=== PATIENT | female | born 1955 | race Caucasian/White ===

== ENCOUNTER → 2020-08-04 | Outpatient (CLI) | payer OTHER ==
[~2020-08-04] MED LIST: ACET500 PO; CARI350 PO; CLOR7.5 PO; IBUP600 PO; LEVSOD112 PO; RXTRAM50 PO; TRAM50 PO
[2020-08-04 14:35] LABS: BASOPHILS ABSOLUTE AUTO 0.06 K/mm3 (0.00-0.23); BASOPHILS PERCENT AUTO 1 % (0-2); EOSINOPHILS ABSOLUTE AUTO 0.14 K/mm3 (0.00-0.68); EOSINOPHILS PERCENT AUTO 3 % (0-6); Hematocrit 37.8 % (33.0-51.0); Hemoglobin 11.2 g/dL (11.5-16.0); IMMATURE GRAN ABSOLUTE AUTO 0.26 K/mm3 (0.00-0.10); IMMATURE GRAN PERCENT AUTO 5 % (0-1); LYMPHOCYTES ABSOLUTE AUTO 1.51 K/mm3 (0.84-5.20); LYMPHOCYTES PERCENT AUTO 29 % (21-46); MONOCYTES PERCENT AUTO 8 % (4-13); Mean Corpuscular HGB 24.1 pg (26.0-34.0); Mean Corpuscular HGB Conc 29.6 g/dL (31.5-36.5); Mean Corpuscular Volume 81 fL (80-100); Mean Platelet Volume 8.3 fL (9.1-12.4); NEUTROPHILS ABSOLUTE AUTO 2.78 K/mm3 (1.96-9.15); NEUTROPHILS PERCENT AUTO 54 % (41-73); Platelet Count 396 K/mm3 (150-400); RDW Coefficient Variation 14.1 % (11.7-14.2); RDW Standard Deviation 41.3 fL (35.1-46.3); Red Blood Cell Count 4.65 M/mm3 (3.80-5.20); White Blood Cell Count 5.15 K/mm3 (4.00-11.30)
[2020-08-04 15:52] LABS: Alanine Aminotransfer (ALT/SGP 23 U/L (12-78); Albumin, Blood 3.8 g/dL (3.4-5.0); Alk Phos 108 U/L (50-136); Anion Gap 5 mmol/L (6-16); Aspartate Aminotrans (AST/SGOT 20 U/L (12-37); Bilirubin, Total 0.2 mg/dL (0.1-1.0); Blood Urea Nitrogen 13 mg/dL (8-24); Bun/Creatinine Ratio 14.7 (12.0-20.0); CHOL/HDL RATIO 4.9; CO2, Blood 26 mmol/L (21-32); Calcium, Blood 9.4 mg/dL (8.5-10.1); Chloride, Blood 100 mmol/L (98-108); Cholesterol 281 mg/dL (50-200); Creatinine, Blood 0.88 mg/dL (0.40-1.00); Globulin, Blood 3.8 g/dL (2.2-4.0); Glomerular Filtration Rate >60 (60-); Glucose, Blood 97 mg/dL (70-99); HDL Cholesterol 57 mg/dL (>39); LDL/HDL RATIO 3.5; Low Density Lipoprotein Chol 200 mg/dL (0-110); Phosphorus, Blood 3.1 mg/dL (2.5-4.9); Potassium, Blood 4.4 mmol/L (3.5-5.5); Sodium, Blood 131 mmol/L (136-145); Thyroxine (T4) 10.5 ug/dL (4.8-13.9); Total Protein, Blood 7.6 g/dL (6.4-8.2); Triglycerides 121 mg/dL (30-160); Very Low Density Lipoprot Chol 24 mg/dL (6-32)
== END ==
LOC: LAB SHORT 10:50 → LAB 10:50
PROVIDERS: Internal Medicine Hematology & Oncology
DX: E03.9 Hypothyroidism, unspecified (principal); I10 Essential (primary) hypertension
CPT/HCPCS: 80053; 80061; 84100; 84436; 84443; 85025

== ENCOUNTER → 2020-10-09 | Outpatient (CLI) | payer OTHER ==
[~2020-10-09] MED LIST changes: +Athenol325 MG PO; +DOCU100 PO; +KLONOPIN0.5 M2 PO; +LOSARTAN POTASS25 M2 PO; +SENNA LAXATIVE8.6 MG PO; +SOMA350 M4 PO
[2020-10-09 16:56] LABS: Alanine Aminotransfer (ALT/SGP 26 U/L (12-78); Albumin, Blood 4.2 g/dL (3.4-5.0); Albumin/Globulin Ratio 1.2 (0.8-1.8); Alk Phos 114 U/L (50-136); Anion Gap 6 mmol/L (6-16); Aspartate Aminotrans (AST/SGOT 20 U/L (12-37); Bilirubin, Total 0.3 mg/dL (0.1-1.0); Blood Urea Nitrogen 13 mg/dL (8-24); Bun/Creatinine Ratio 16.8 (12.0-20.0); CHOL/HDL RATIO 4.7; CO2, Blood 25 mmol/L (21-32); Calcium, Blood 9.9 mg/dL (8.5-10.1); Chloride, Blood 96 mmol/L (98-108); Cholesterol 318 mg/dL (50-200); Creatinine, Blood 0.77 mg/dL (0.40-1.00); Ferritin, Serum 10 ng/mL (8-252); Globulin, Blood 3.5 g/dL (2.2-4.0); Glomerular Filtration Rate >60 (60-); Glucose, Blood 99 mg/dL (70-99); HDL Cholesterol 68 mg/dL (>39); Iron Serum 35 ug/dL (50-170); LDL/HDL RATIO 3.3; Low Density Lipoprotein Chol 226 mg/dL (0-110); Percent Saturation 6.2 % (15.0-50.0); Phosphorus, Blood 3.4 mg/dL (2.5-4.9); Potassium, Blood 4.5 mmol/L (3.5-5.5); Sodium, Blood 127 mmol/L (136-145); Thyroxine (T4) 10.2 ug/dL (4.8-13.9); Total Iron Binding Capacity 561 ug/dL (250-450); Total Protein, Blood 7.7 g/dL (6.4-8.2); Triglycerides 120 mg/dL (30-160); Very Low Density Lipoprot Chol 24 mg/dL (6-32)
== END | disposition home or self-care (01) ==
LOC: PLD 10:00 → LAB SHORT 10:00
PROVIDERS: Internal Medicine Hematology & Oncology
DX: E03.9 Hypothyroidism, unspecified (principal); I10 Essential (primary) hypertension; D50.0 Iron deficiency anemia secondary to blood loss (chronic); E78.5 Hyperlipidemia, unspecified
CPT/HCPCS: 80053; 80061; 82728; 83540; 83550; 84100; 84436; 84443

== ENCOUNTER 2020-11-24 14:19 | Emergency (ER) | payer OTHER ==
[~2020-11-24] VITALS: Ht 162.6 cm; Wt 79.4 kg
[~2020-11-24 14:19] MED LIST changes: -Athenol325 MG PO; -DOCU100 PO; -KLONOPIN0.5 M2 PO; -LOSARTAN POTASS25 M2 PO; -SENNA LAXATIVE8.6 MG PO; -SOMA350 M4 PO
[2020-11-24 15:12] LABS: Source, Urine Voided
[2020-11-24 15:17] LABS: Bilirubin, Urine Neg (Neg); Blood, Urine Neg (Neg); Glucose Qualitative, Urine Neg (Neg); Ketones, Urine 2+ (Neg); Leukocyte Esterase, Urine Neg (Neg); Nitrite, Urine Neg (Neg); Protein, Urine Neg (Neg); Specific Gravity, Urine 1.015 (1.003-1.022); Urobilinogen, Urine NORM (Normal)
[2020-11-24 15:29] LABS: Alanine Aminotransfer (ALT/SGP 27 U/L (12-78); Albumin, Blood 3.9 g/dL (3.4-5.0); Alk Phos 109 U/L (50-136); Anion Gap 8 mmol/L (6-16); Aspartate Aminotrans (AST/SGOT 18 U/L (12-37); BASOPHILS ABSOLUTE AUTO 0.04 K/mm3 (0.00-0.23); BASOPHILS PERCENT AUTO 1 % (0-2); Bilirubin, Total 0.5 mg/dL (0.1-1.0); Blood Urea Nitrogen 7 mg/dL (8-24); Bun/Creatinine Ratio 9.3 (12.0-20.0); CO2, Blood 25 mmol/L (21-32); Calcium, Blood 10.2 mg/dL (8.5-10.1); Chloride, Blood 96 mmol/L (98-108); Creatinine, Blood 0.76 mg/dL (0.40-1.00); EOSINOPHILS ABSOLUTE AUTO 0.04 K/mm3 (0.00-0.68); EOSINOPHILS PERCENT AUTO 1 % (0-6); Globulin, Blood 3.9 g/dL (2.2-4.0); Glomerular Filtration Rate >60 (60-); Glucose, Blood 98 mg/dL (70-99); Hematocrit 36.7 % (33.0-51.0); Hemoglobin 11.4 g/dL (11.5-16.0); IMMATURE GRAN ABSOLUTE AUTO 0.01 K/mm3 (0.00-0.10); IMMATURE GRAN PERCENT AUTO 0 % (0-1); LYMPHOCYTES ABSOLUTE AUTO 1.24 K/mm3 (0.84-5.20); LYMPHOCYTES PERCENT AUTO 25 % (21-46); MONOCYTES ABSOLUTE AUTO 0.45 K/mm3 (0.16-1.47); MONOCYTES PERCENT AUTO 9 % (4-13); Mean Corpuscular HGB 24.8 pg (26.0-34.0); Mean Corpuscular HGB Conc 31.1 g/dL (31.5-36.5); Mean Corpuscular Volume 80 fL (80-100); Mean Platelet Volume 8.1 fL (9.1-12.4); NEUTROPHILS ABSOLUTE AUTO 3.28 K/mm3 (1.96-9.15); NEUTROPHILS PERCENT AUTO 65 % (41-73); Platelet Count 367 K/mm3 (150-400); Potassium, Blood 3.9 mmol/L (3.5-5.5); RDW Coefficient Variation 13.5 % (11.7-14.2); RDW Standard Deviation 38.3 fL (35.1-46.3); Red Blood Cell Count 4.59 M/mm3 (3.80-5.20); Sodium, Blood 129 mmol/L (136-145); Total Protein, Blood 7.8 g/dL (6.4-8.2); White Blood Cell Count 5.06 K/mm3 (4.00-11.30)
[2020-11-24 15:42] LABS: Appearance, Urine Clear (Clear); Color, Urine Pale Yellow (P-Yellow)
== END 2020-11-24 17:17 | disposition home or self-care (01) ==
LOC: ER 14:19
PROVIDERS: Emergency Medicine
DX: R30.0 Dysuria (principal); R10.30 Lower abdominal pain, unspecified; E03.9 Hypothyroidism, unspecified; Z79.899 Other long term (current) drug therapy; Z88.2 Allergy status to sulfonamides; Z88.1 Allergy status to other antibiotic agents
CPT/HCPCS: 36415; 51798; 80053; 81003; 85025; 93005; 93010; 99284-25; P9612

== ENCOUNTER → 2020-12-16 | Outpatient (CLI) | payer OTHER | END | disposition home or self-care (01) | LOC: LAB 17:26 → LAB SHORT 17:26 | DX: E78.5 Hyperlipidemia, unspecified (principal); I10 Essential (primary) hypertension; R63.1 Polydipsia; R63.4 Abnormal weight loss | CPT/HCPCS: 80053; 83036; 84100 ==

== ENCOUNTER 2021-01-21 10:21 | Emergency (ER) | payer OTHER ==
[~2021-01-21] VITALS: Ht 165.1 cm; Wt 86.2 kg
[2021-01-21 11:58] LABS: BASOPHILS ABSOLUTE AUTO 0.05 K/mm3 (0.00-0.23); BASOPHILS PERCENT AUTO 1 % (0-2); EOSINOPHILS ABSOLUTE AUTO 0.02 K/mm3 (0.00-0.68); EOSINOPHILS PERCENT AUTO 0 % (0-6); Hemoglobin 11.2 g/dL (11.5-16.0); IMMATURE GRAN ABSOLUTE AUTO 0.03 K/mm3 (0.00-0.10); IMMATURE GRAN PERCENT AUTO 1 % (0-1); LYMPHOCYTES ABSOLUTE AUTO 0.64 K/mm3 (0.84-5.20); LYMPHOCYTES PERCENT AUTO 13 % (21-46); MONOCYTES ABSOLUTE AUTO 0.41 K/mm3 (0.16-1.47); MONOCYTES PERCENT AUTO 9 % (4-13); Mean Corpuscular HGB 26.5 pg (26.0-34.0); Mean Corpuscular Volume 83 fL (80-100); NEUTROPHILS ABSOLUTE AUTO 3.69 K/mm3 (1.96-9.15); NEUTROPHILS PERCENT AUTO 76 % (41-73); RDW Coefficient Variation 15.3 % (11.7-14.2); Red Blood Cell Count 4.22 M/mm3 (3.80-5.20); White Blood Cell Count 4.84 K/mm3 (4.00-11.30)
[2021-01-21 12:07] LABS: Alanine Aminotransfer (ALT/SGP 33 U/L (12-78); Albumin, Blood 4.2 g/dL (3.4-5.0); Albumin/Globulin Ratio 1.1 (0.8-1.8); Alk Phos 123 U/L (50-136); Anion Gap 5 mmol/L (6-16); Aspartate Aminotrans (AST/SGOT 24 U/L (12-37); Bilirubin, Total 0.3 mg/dL (0.1-1.0); Blood Urea Nitrogen 5 mg/dL (8-24); Bun/Creatinine Ratio 6.4 (12.0-20.0); CO2, Blood 26 mmol/L (21-32); Calcium, Blood 9.8 mg/dL (8.5-10.1); Chloride, Blood 92 mmol/L (98-108); Creatinine, Blood 0.78 mg/dL (0.40-1.00); Globulin, Blood 3.7 g/dL (2.2-4.0); Glomerular Filtration Rate >60 (60-); Glucose, Blood 109 mg/dL (70-99); Potassium, Blood 3.9 mmol/L (3.5-5.5); Sodium, Blood 123 mmol/L (136-145); Total Protein, Blood 7.9 g/dL (6.4-8.2); Troponin I <0.015 ng/mL (0.000-0.040)
[2021-01-21 12:09] LABS: Mean Platelet Volume 8.4 fL (9.1-12.4); Platelet Count 279 K/mm3 (150-400)
[2021-01-21] MEDS ORDERED: KLONOPIN0.5 M2 PO (15:03)
[2021-01-21] MEDS ORDERED: LOSARTAN POTASS25 M2 PO (15:03)
== END 2021-01-21 17:20 | disposition home or self-care (01) ==
LOC: ER 10:21
PROVIDERS: Physician Assistant
DX: S09.90XA Unspecified injury of head, initial encounter (principal); E87.1 Hypo-osmolality and hyponatremia; E03.9 Hypothyroidism, unspecified; Z91.14 Patient's other noncompliance with medication regimen; Z88.2 Allergy status to sulfonamides; Z88.1 Allergy status to other antibiotic agents; Z88.8 Allergy status to other drugs, medicaments and biological substances; Z79.899 Other long term (current) drug therapy; W01.0XXA Fall on same level from slipping, tripping and stumbling without subsequent striking against object, initial encounter
CPT/HCPCS: 36415; 70450; 80053; 81000; 84484; 85025; 93005; 93010; 99284-25; A9270; J7030

== ENCOUNTER → 2021-01-28 | Outpatient (CLI) | payer OTHER ==
[~2021-01-28] MED LIST changes: +Athenol325 MG PO; +DOCU100 PO; +KLONOPIN0.5 M2 PO; +LOSARTAN POTASS25 M2 PO; +SENNA LAXATIVE8.6 MG PO; +SOMA350 M4 PO
[2021-01-28 16:51] LABS: BASOPHILS ABSOLUTE AUTO 0.04 K/mm3 (0.00-0.23); BASOPHILS PERCENT AUTO 1 % (0-2); EOSINOPHILS ABSOLUTE AUTO 0.05 K/mm3 (0.00-0.68); EOSINOPHILS PERCENT AUTO 1 % (0-6); Hematocrit 41.3 % (33.0-51.0); IMMATURE GRAN ABSOLUTE AUTO 0.03 K/mm3 (0.00-0.10); IMMATURE GRAN PERCENT AUTO 1 % (0-1); LYMPHOCYTES ABSOLUTE AUTO 0.88 K/mm3 (0.84-5.20); LYMPHOCYTES PERCENT AUTO 15 % (21-46); MONOCYTES ABSOLUTE AUTO 0.62 K/mm3 (0.16-1.47); MONOCYTES PERCENT AUTO 11 % (4-13); Mean Corpuscular HGB 26.6 pg (26.0-34.0); Mean Corpuscular HGB Conc 31.5 g/dL (31.5-36.5); Mean Corpuscular Volume 85 fL (80-100); Mean Platelet Volume 8.2 fL (9.1-12.4); NEUTROPHILS ABSOLUTE AUTO 4.31 K/mm3 (1.96-9.15); NEUTROPHILS PERCENT AUTO 73 % (41-73); Platelet Count 384 K/mm3 (150-400); RDW Coefficient Variation 16.1 % (11.7-14.2); RDW Standard Deviation 49.8 fL (35.1-46.3); Red Blood Cell Count 4.89 M/mm3 (3.80-5.20); White Blood Cell Count 5.93 K/mm3 (4.00-11.30)
[2021-01-28 16:59] LABS: Thyroxine (T4) 12.3 ug/dL (4.8-13.9)
[2021-01-28 17:00] LABS: Alanine Aminotransfer (ALT/SGP 32 U/L (12-78); Albumin, Blood 4.2 g/dL (3.4-5.0); Albumin/Globulin Ratio 1.1 (0.8-1.8); Alk Phos 123 U/L (50-136); Anion Gap 8 mmol/L (6-16); Aspartate Aminotrans (AST/SGOT 21 U/L (12-37); Bilirubin, Total 0.3 mg/dL (0.1-1.0); Blood Urea Nitrogen 9 mg/dL (8-24); Bun/Creatinine Ratio 11.5 (12.0-20.0); CO2, Blood 25 mmol/L (21-32); Calcium, Blood 10.4 mg/dL (8.5-10.1); Chloride, Blood 91 mmol/L (98-108); Creatinine, Blood 0.78 mg/dL (0.40-1.00); Globulin, Blood 3.7 g/dL (2.2-4.0); Glomerular Filtration Rate >60 (60-); Glucose, Blood 106 mg/dL (70-99); Potassium, Blood 4.9 mmol/L (3.5-5.5); Sodium, Blood 124 mmol/L (136-145); Total Protein, Blood 7.9 g/dL (6.4-8.2)
== END | disposition home or self-care (01) ==
LOC: LAB SHORT 15:35 → PLD 15:35
PROVIDERS: Internal Medicine Hematology & Oncology
DX: E78.5 Hyperlipidemia, unspecified (principal); D50.0 Iron deficiency anemia secondary to blood loss (chronic); I10 Essential (primary) hypertension
CPT/HCPCS: 80053; 84100; 84436; 84443; 85025

== ENCOUNTER 2021-02-01 23:04 | Observation (INO) | payer OTHER ==
[~2021-02-01] VITALS: Ht 165.1 cm; Wt 75.0 kg
[~2021-02-01 23:04] MED LIST changes: -Athenol325 MG PO; -DOCU100 PO; -SENNA LAXATIVE8.6 MG PO; -SOMA350 M4 PO
[2021-02-01 23:52] LABS: Anion Gap 5 mmol/L (6-16); Blood Urea Nitrogen 9 mg/dL (8-24); Bun/Creatinine Ratio 12.3 (12.0-20.0); CO2, Blood 26 mmol/L (21-32); Calcium, Blood 10.4 mg/dL (8.5-10.1); Chloride, Blood 88 mmol/L (98-108); Creatinine, Blood 0.73 mg/dL (0.40-1.00); Glomerular Filtration Rate >60 (60-); Glucose, Blood 110 mg/dL (70-99); Potassium, Blood 4.4 mmol/L (3.5-5.5); Sodium, Blood 119 mmol/L (136-145)
[2021-02-02 00:48] LABS: Source, Urine Clean Catch
[2021-02-02 00:51] LABS: Bilirubin, Urine Neg (Neg); Blood, Urine Neg (Neg); Glucose Qualitative, Urine Neg (Neg); Ketones, Urine 2+ (Neg); Leukocyte Esterase, Urine Neg (Neg); Nitrite, Urine Neg (Neg); Protein, Urine Neg (Neg); Urobilinogen, Urine NORM (Normal)
[2021-02-02 00:59] LABS: Appearance, Urine Clear (Clear); Color, Urine Yellow (P-Yellow)
[2021-02-02] MEDS ORDERED: SOMA350 M4 PO (01:29)
--- NOTE | 2021-02-02 06:50 | NUR ---
SUMMARY PT ARRIVED TO [facility] IN NO DISTRESS. PT C/O OF BACK PAIN AND HEARTBURN. PT TX PER EMAR. PT HAS REQUESTED TO HAVE PEPCID BID, WILL INFORM DAY RN. PT CALL LIGHT IN REACH.
[2021-02-02 08:19] LABS: BASOPHILS ABSOLUTE AUTO 0.04 K/mm3 (0.00-0.23); BASOPHILS PERCENT AUTO 1 % (0-2); EOSINOPHILS ABSOLUTE AUTO 0.04 K/mm3 (0.00-0.68); EOSINOPHILS PERCENT AUTO 1 % (0-6); Hematocrit 40.2 % (33.0-51.0); Hemoglobin 13.3 g/dL (11.5-16.0); IMMATURE GRAN ABSOLUTE AUTO 0.02 K/mm3 (0.00-0.10); IMMATURE GRAN PERCENT AUTO 0 % (0-1); LYMPHOCYTES ABSOLUTE AUTO 0.95 K/mm3 (0.84-5.20); LYMPHOCYTES PERCENT AUTO 18 % (21-46); MONOCYTES ABSOLUTE AUTO 0.65 K/mm3 (0.16-1.47); MONOCYTES PERCENT AUTO 12 % (4-13); Mean Corpuscular HGB 27.2 pg (26.0-34.0); Mean Corpuscular HGB Conc 33.1 g/dL (31.5-36.5); Mean Corpuscular Volume 82 fL (80-100); Mean Platelet Volume 7.9 fL (9.1-12.4); NEUTROPHILS PERCENT AUTO 68 % (41-73); Platelet Count 336 K/mm3 (150-400); RDW Standard Deviation 48.2 fL (35.1-46.3); Red Blood Cell Count 4.89 M/mm3 (3.80-5.20)
[2021-02-02 08:35] LABS: Alanine Aminotransfer (ALT/SGP 28 U/L (12-78); Albumin, Blood 4.1 g/dL (3.4-5.0); Albumin/Globulin Ratio 1.1 (0.8-1.8); Alk Phos 112 U/L (50-136); Anion Gap 1 mmol/L (6-16); Aspartate Aminotrans (AST/SGOT 16 U/L (12-37); Bilirubin, Total 0.4 mg/dL (0.1-1.0); Blood Urea Nitrogen 7 mg/dL (8-24); Bun/Creatinine Ratio 9.9 (12.0-20.0); CO2, Blood 29 mmol/L (21-32); Calcium, Blood 9.8 mg/dL (8.5-10.1); Chloride, Blood 96 mmol/L (98-108); Creatinine, Blood 0.71 mg/dL (0.40-1.00); Globulin, Blood 3.8 g/dL (2.2-4.0); Glomerular Filtration Rate >60 (60-); Glucose, Blood 108 mg/dL (70-99); Sodium, Blood 126 mmol/L (136-145); Total Protein, Blood 7.9 g/dL (6.4-8.2)
--- NOTE | 2021-02-02 09:00 | NUR ---
PT IS HIGH ANX. WORRIED ABOUT EVERYTHING, A/O X3 PLEASANT. STATES PAIN 7 HEADACHE. 5 IS OKAY. WILL MEDICATE. H/R REG, NO MURMER NOTED. PER TELE SINUS WITH1'BLOCK RATE 73. LUNGS CLEAR T/O. RESP EASY, UNLABORED. ON R.A. BT HYPO. LAST BM 3 DAYS PER PT. VOIDS 1 ASST TO BSC. BED IN LOW POSITION, CALL LITE IN REACH, BED ALARM ON FOR SAFETY
--- NOTE | 2021-02-02 12:03 | NUR ---
IN ROOM. PT REQUEST BOWEL CARE MEDS. ALSO PEPCID BID. ORDERS GIVEN. PEPCID CHNGE FROM DAILY, BEDTIME 40 MG TO BID 20 MG.
[2021-02-02 12:48] LABS: Thyroid Stimulating Hormone 1.99 uIU/mL (0.360-4.800); Uric Acid, Blood 2.4 mg/dL (2.6-6.0)
[2021-02-02 16:16] LABS: Anion Gap 5 mmol/L (6-16); Blood Urea Nitrogen 9 mg/dL (8-24); Bun/Creatinine Ratio 14.5 (12.0-20.0); CO2, Blood 24 mmol/L (21-32); Calcium, Blood 10.1 mg/dL (8.5-10.1); Chloride, Blood 98 mmol/L (98-108); Creatinine, Blood 0.62 mg/dL (0.40-1.00); Glomerular Filtration Rate >60 (60-); Glucose, Blood 97 mg/dL (70-99); Potassium, Blood 4.3 mmol/L (3.5-5.5); Sodium, Blood 127 mmol/L (136-145)
--- NOTE | 2021-02-02 18:40 | NUR ---
PT PLEASANT TODAY. ANX SEEMS TO QUIET MUCH AFTER PAIN MORE CONTROLLED. HAVE BEEN GIVING SOMA AND TYLENOL, AND THIS SEEMS TO WORK WELL.SHE STATES IS HER BASIC HOME REGEMIN. NO NEW CONCERNS NOTED TODAY. BED IN LOW POSITION, CALL LITE IN REACH, BED ALARM ON FOR SAFETY
--- NOTE | 2021-02-02 22:00 | NUR ---
ASSUMED CARE. AOX3. PAIN 6/10 CHRONIC IN BACK. MEDICATED WITH SOMA AND TYLENOL. SHE IS VERY FIXATED ON HAVING HER SOMA, SHE GETS VERY ANXIOUS WHEN SHE DOES NOT GET IT. DENIES CHEST PAIN OR PALPITATIONS. IVF INFUSING WITH NO PROBLEMS. DID REPORT SOME ABDOMINAL PAIN AND DISCOMFORT. STATES "IM FAT", REPORTING SHE IS ANEREXIC AND PLANS ON CONTINUING TO NOT EAT WELL TO GET HER WEIGHT DOWN. STATES ONCE SHE IS DOWN SHE PROMISES SHE WILL NOT GAIN IT AGAIN. INFORMED HER OF THE RISK AND WHAT IT CAN CAUSE. SHE DID NOT SEEM INTERESTED. DENIES ANY OTHER NEEDS. CALL LIGHT IN REACH.
[2021-02-03 00:17] LABS: Anion Gap 4 mmol/L (6-16); Blood Urea Nitrogen 10 mg/dL (8-24); Bun/Creatinine Ratio 16.4 (12.0-20.0); CO2, Blood 25 mmol/L (21-32); Calcium, Blood 10.2 mg/dL (8.5-10.1); Chloride, Blood 97 mmol/L (98-108); Creatinine, Blood 0.61 mg/dL (0.40-1.00); Glomerular Filtration Rate >60 (60-); Glucose, Blood 91 mg/dL (70-99); Sodium, Blood 126 mmol/L (136-145)
[2021-02-03 04:41] LABS: Hematocrit 38.1 % (33.0-51.0); Hemoglobin 12.4 g/dL (11.5-16.0)
[2021-02-03 05:21] LABS: Albumin, Blood 3.7 g/dL (3.4-5.0); Anion Gap 6 mmol/L (6-16); Blood Urea Nitrogen 8 mg/dL (8-24); Bun/Creatinine Ratio 12.8 (12.0-20.0); CO2, Blood 23 mmol/L (21-32); Calcium, Blood 9.8 mg/dL (8.5-10.1); Chloride, Blood 97 mmol/L (98-108); Creatinine, Blood 0.62 mg/dL (0.40-1.00); Glomerular Filtration Rate >60 (60-); Glucose, Blood 93 mg/dL (70-99); Magnesium, Blood 2.3 mg/dL (1.6-2.4); Phosphorus, Blood 2.5 mg/dL (2.5-4.9); Potassium, Blood 3.8 mmol/L (3.5-5.5); Sodium, Blood 126 mmol/L (136-145)
--- NOTE | 2021-02-03 06:30 | NUR ---
SHIFT SUMMARY. AOX3 BUT HAS SOME ANXIETY. REPEATS SELF SEVERAL TIMES TO MAKE SURE EVERYONE KNOWS WHAT IS WRONG WITH HER EVEN IF SHE HAS BEEN TOLD SHE IS DOING FINE. ABLE TO GET UP WITH SBA TO BSC. AFRAID OF FALLING. LUNGS ARE CLEAR. SINUS WITH 1ST DEGREE BLOCK. NO CHEST PAIN. STATE HEADACHE SINCE SHE FELL AND HIT HER HEAD AT HOME. PUPILS ARE REACTIVE.NA STILL [address] WELCH PLACED NEW ORDERS. FLUID RESTRICTION STARTED. IVF STOPPED. VSS/AFEBRILE. MEDICATED FOR SWAIN AND BACK PAIN LAST NIGHT. NO OTHER CHANGES TO NOTE. CALL LIGHT IN REACH.
[2021-02-03 08:47] LABS: Anion Gap 8 mmol/L (6-16); Blood Urea Nitrogen 9 mg/dL (8-24); CO2, Blood 23 mmol/L (21-32); Calcium, Blood 10.1 mg/dL (8.5-10.1); Chloride, Blood 98 mmol/L (98-108); Creatinine, Blood 0.64 mg/dL (0.40-1.00); Glomerular Filtration Rate >60 (60-); Glucose, Blood 102 mg/dL (70-99); Potassium, Blood 3.9 mmol/L (3.5-5.5); Sodium, Blood 129 mmol/L (136-145)
--- NOTE | 2021-02-03 17:20 | NUR ---
SHIFT SUMMARY- PT IS A/O, PLESANT AND COOPERATIVE. SHE HAS BEEN EATING ABOUT HALF OF HER MEALS. SHE IS RECIEVING PAIN MEDICATION PRN AND IS RECIEVING EYEDROPS PRN. SHE WORKED WITH PT AND OT THIS SHIFT AND TOLERATED WELL. SHE HAD A BM THIS SHIFT. HER BED IS IN THE LOW POSITION AND CALL LIGHT IS WITHIN REACH.
[2021-02-04 04:35] LABS: Hematocrit 39.5 % (33.0-51.0)
[2021-02-04 04:53] LABS: Albumin, Blood 3.8 g/dL (3.4-5.0); Anion Gap 7 mmol/L (6-16); Blood Urea Nitrogen 11 mg/dL (8-24); Bun/Creatinine Ratio 17.4 (12.0-20.0); CO2, Blood 25 mmol/L (21-32); Calcium, Blood 10.2 mg/dL (8.5-10.1); Chloride, Blood 95 mmol/L (98-108); Creatinine, Blood 0.63 mg/dL (0.40-1.00); Glomerular Filtration Rate >60 (60-); Glucose, Blood 96 mg/dL (70-99); Magnesium, Blood 2.4 mg/dL (1.6-2.4); Phosphorus, Blood 2.6 mg/dL (2.5-4.9); Potassium, Blood 3.7 mmol/L (3.5-5.5); Sodium, Blood 127 mmol/L (136-145)
--- NOTE | 2021-02-04 07:25 | NUR ---
SHIFT SUMMARY: AOX3, 1 ASSIST TO BSC. TELE DC PER PATIENT REQUEST. PAIN MANAGED WITH CURRENT MEDICATIONS. NA INCREASED TO 127. DR. WELCH SAW PATIENT THIS AM AND STATES SHE CAN GO HOME FOR THE DAY. VSS/AFEBRILE. SLEPT OFF AND ON THIS SHIFT. NO OTHER ACUTE CHANGES TO NOTE. CALL LIGHT IN REACH.
--- NOTE | 2021-02-04 18:23 | NUR ---
SHIFT SUMMARY PT ALERT, BUT CONFUSED AT TIMES. PT WORKED WITH PT TODAY. PT REFUSED SIADH MEDICATION PER DR WELCH, BECAUSE SHE STATED SHE IS ALLERGIC TO THOSE MEDS. PT ALSO STATED SHE HAS BEEN CONSTIPATED TODAY, ENEMA ORDERED, BUT SHE STATED SHE WILL WAIT LATER; WILL TRY AGAIN. PT VERY EMOTIONAL AND CRYING TODAY BECAUSE SHE STATED HIS SON DOES NOT CARE HOW SHE FEELS. AWAITS FOR DISCHARGE PLAN WHETHER TO GO HOME WITH HOME HEALTH OR ATTENDING RADIOLOGIST ASSISTANCE. BED IS IN THE LOWEST POSITION AND CALL LIGHT WITHIN REACH
--- NOTE | 2021-02-05 03:30 | NUR ---
CONVERSATION WAS EXPRESSED TO ME THAT PATIENT VERY UPSET R/T ASKING TO BE LEFT IN THE DARK ON THE COMMODE WITH THE WATER RUNNING TO VOID. ARTIST AND REPERTOIRE MANAGER EXPLAINED TO PATIENT THAT IT IS UNSAFE FOR HER TO BE LEFT ALONE IN THE DARK; PATIENT UNWILLING TO LISTEN AND BECAME UPSET WITH CARE. THIS RN WENT IN TO SPEAK WITH PATIENT ABOUT HOW THAT IS A SAFETY HAZARD AT ANY TIME NOT JUST DURING THE HOSPITAL VISIT. PATIENT STATED THAT SHE JUST WANTED TO HAVE HER PRIVACY. THIS RN EXPLAINED THAT IT IS VERY IMPORTANT THAT SHE BE MONITORED WHILE ON THE COMMODE. LIST OF MULTIPLE OTHER COMPLAINTS THAT DID NOT HAVE ANYTHING TO DO WITH THE SITUATION. AFTER SITTING ON THE COMMODE WITH THIS RN FOR SEVERAL MINUTES. STATED INABILITY TO VOID AT THIS TIME AND WAS HELPED BACK INTO BED. ASKED THAT IF SHE FELT LIKE SHE NEEDED TO VOID AGAIN TO CALL AND THIS RN WOULD HELP HER TO THE COMMODE.
[2021-02-05 05:26] LABS: Hematocrit 42.4 % (33.0-51.0); Hemoglobin 13.7 g/dL (11.5-16.0)
[2021-02-05 05:47] LABS: Anion Gap 5 mmol/L (6-16); Blood Urea Nitrogen 15 mg/dL (8-24); Bun/Creatinine Ratio 20.2 (12.0-20.0); CO2, Blood 28 mmol/L (21-32); Calcium, Blood 10.4 mg/dL (8.5-10.1); Chloride, Blood 94 mmol/L (98-108); Creatinine, Blood 0.74 mg/dL (0.40-1.00); Glomerular Filtration Rate >60 (60-); Glucose, Blood 100 mg/dL (70-99); Magnesium, Blood 2.4 mg/dL (1.6-2.4); Potassium, Blood 3.9 mmol/L (3.5-5.5); Sodium, Blood 127 mmol/L (136-145)
--- NOTE | 2021-02-05 06:03 | NUR ---
SHIFT SUMMARY A/O, ABLE TO MAKE NEEDS KNOWN. COOPERATIVE WITH CARE. CALLS APPROPRIATELY. MULTIPLE REQUESTS FROM STAFF OVERNIGHT. C/O PAIN/DISCOMFORT; MEDICATED PER EMAR. EDUCATED ON FALL SAFETY; SEE PREV GREYSON NOTE. APPEARED TO REST VERY LITTLE; PATIENT STATED DID NOT SLEEP MUCH AT BEGINNING OF SHIFT. 1P ASSIST TO BSC, MINIMAL OUTPUT. NO OTHER ACUTE CHANGES NOTED. EAGER TO RETURN HOME. BED IN LOWEST POSITION; ALARM ON. CALL LIGHT AND BELONGINGS WITHIN REACH. CONTINUE WITH CURRENT PLAN OF CARE. REPORT TO ONCOMING RN.
[2021-02-05] MEDS ORDERED: DOCU100 PO (11:03)
[2021-02-05] MEDS ORDERED: SENNA LAXATIVE8.6 MG PO (11:03)
[2021-02-05] MEDS ORDERED: Athenol325 MG PO (11:03)
== END 2021-02-05 14:17 | disposition home health service (06) ==
LOC: ER 23:04 → MEDS 23:06 → ER 02-02 00:10 → MEDS 02-02 00:10
PROVIDERS: Internal Medicine; Internal Medicine Nephrology; Student in an Organized Health Care Education/Training Program; ADMIT Internal Medicine
DX: E22.2 Syndrome of inappropriate secretion of antidiuretic hormone (principal); E83.52 Hypercalcemia; E86.0 Dehydration; E03.9 Hypothyroidism, unspecified; I12.9 Hypertensive chronic kidney disease with stage 1 through stage 4 chronic kidney disease, or unspecified chronic kidney disease; N18.2 Chronic kidney disease, stage 2 (mild); F41.9 Anxiety disorder, unspecified; Z91.14 Patient's other noncompliance with medication regimen
CPT/HCPCS: 36415; 80048; 80053; 80069; 81003; 82533; 83735; 83930; 84295; 84443; 84550; 85014; 85018; 85025; 93005; 93010; 96376; 97110; 97162; 97165; 97530; 97535; 99285-25; A9270; G0378; J2405; J7030

== ENCOUNTER → 2021-02-19 | Outpatient (CLI) | payer OTHER ==
[~2021-02-19] MED LIST changes: +Athenol325 MG PO; +DOCU100 PO; +SENNA LAXATIVE8.6 MG PO; +SOMA350 M4 PO
[2021-02-19 12:26] LABS: Hemoglobin 12.8 g/dL (11.5-16.0)
[2021-02-19 12:54] LABS: Albumin, Blood 3.7 g/dL (3.4-5.0); Anion Gap 5 mmol/L (6-16); Blood Urea Nitrogen 15 mg/dL (8-24); Bun/Creatinine Ratio 16.9 (12.0-20.0); CO2, Blood 28 mmol/L (21-32); Calcium, Blood 10.3 mg/dL (8.5-10.1); Chloride, Blood 104 mmol/L (98-108); Creatinine, Blood 0.89 mg/dL (0.40-1.00); Glomerular Filtration Rate >60 (60-); Glucose, Blood 100 mg/dL (70-99); Phosphorus, Blood 2.7 mg/dL (2.5-4.9); Potassium, Blood 3.9 mmol/L (3.5-5.5); Sodium, Blood 137 mmol/L (136-145)
== END | disposition home or self-care (01) ==
LOC: LAB SHORT 11:06
PROVIDERS: Internal Medicine Nephrology
DX: N18.30 Chronic kidney disease, stage 3 unspecified (principal)
CPT/HCPCS: 80069; 85014; 85018

== ENCOUNTER 2021-09-04 18:10 | Inpatient (IN) | payer OTHER ==
[~2021-09-04] VITALS: Ht 162.6 cm; Wt 64.8 kg
[~2021-09-04 18:10] MED LIST changes: -KLONOPIN0.5 M2 PO; -LEVSOD112 PO; -LOSARTAN POTASS25 M2 PO; -SOMA350 M4 PO
[2021-09-04 19:05] LABS: BASOPHILS ABSOLUTE AUTO 0.01 K/mm3 (0.00-0.23); BASOPHILS PERCENT AUTO 0 % (0-2); EOSINOPHILS PERCENT AUTO 0 % (0-6); Hematocrit 42.3 % (33.0-51.0); Hemoglobin 14.5 g/dL (11.5-16.0); IMMATURE GRAN ABSOLUTE AUTO 0.11 K/mm3 (0.00-0.10); IMMATURE GRAN PERCENT AUTO 1 % (0-1); LYMPHOCYTES ABSOLUTE AUTO 0.48 K/mm3 (0.84-5.20); LYMPHOCYTES PERCENT AUTO 4 % (21-46); MONOCYTES ABSOLUTE AUTO 0.87 K/mm3 (0.16-1.47); MONOCYTES PERCENT AUTO 7 % (4-13); Mean Corpuscular HGB 29.8 pg (26.0-34.0); Mean Corpuscular HGB Conc 34.3 g/dL (31.5-36.5); Mean Corpuscular Volume 87 fL (80-100); Mean Platelet Volume 8.6 fL (9.1-12.4); NEUTROPHILS ABSOLUTE AUTO 11.89 K/mm3 (1.96-9.15); NEUTROPHILS PERCENT AUTO 89 % (41-73); Platelet Count 357 K/mm3 (150-400); RDW Coefficient Variation 12.1 % (11.7-14.2); RDW Standard Deviation 38.9 fL (35.1-46.3); Red Blood Cell Count 4.86 M/mm3 (3.80-5.20); White Blood Cell Count 13.36 K/mm3 (4.00-11.30)
[2021-09-04 19:35] LABS: Alanine Aminotransfer (ALT/SGP 56 U/L (12-78); Albumin, Blood 2.9 g/dL (3.4-5.0); Albumin/Globulin Ratio 0.5 (0.8-1.8); Alk Phos 150 U/L (50-136); Anion Gap 10 mmol/L (6-16); Aspartate Aminotrans (AST/SGOT 176 U/L (12-37); Bilirubin, Total 0.5 mg/dL (0.1-1.0); Blood Urea Nitrogen 50 mg/dL (8-24); Bun/Creatinine Ratio 55.5 (12.0-20.0); CO2, Blood 24 mmol/L (21-32); Calcium, Blood 11.5 mg/dL (8.5-10.1); Chloride, Blood 98 mmol/L (98-108); Creatine Kinase MB 25.1 ng/mL (0.0-3.6); Globulin, Blood 5.3 g/dL (2.2-4.0); Glomerular Filtration Rate >60 (60-); Glucose, Blood 136 mg/dL (70-99); Magnesium, Blood 2.6 mg/dL (1.6-2.4); Potassium, Blood 3.5 mmol/L (3.5-5.5); Sodium, Blood 132 mmol/L (136-145); Total Protein, Blood 8.2 g/dL (6.4-8.2)
[2021-09-04 19:46] LABS: CPK Creatine Kinase 2546 U/L (26-193)
[2021-09-04 19:48] LABS: Free Thyroxine 1.22 ng/dL (0.70-1.60)
[2021-09-04 19:51] LABS: Thyroid Stimulating Hormone 1.79 uIU/mL (0.360-4.800)
[2021-09-04 23:39] LABS: Source, Urine Clean Catch
[2021-09-04 23:41] LABS: Bilirubin, Urine Neg (Neg); Blood, Urine 5+ (Neg); Glucose Qualitative, Urine Neg (Neg); Ketones, Urine Neg (Neg); Leukocyte Esterase, Urine 3+ (Neg); Nitrite, Urine Neg (Neg); Protein, Urine 3+ (Neg); Urobilinogen, Urine NORM (Normal)
[2021-09-05 00:03] LABS: Appearance, Urine Cloudy (Clear); Color, Urine Yellow (P-Yellow)
[2021-09-05 00:04] LABS: Bacteria Many /hpf; Squamous Epithelial Cells Rare /hpf (Few); White Blood Cells, Urine TNTC /hpf (0-5)
[2021-09-05 00:11] LABS: U Amphetamine Screen Not Detected; U Barbituate Screen Not Detected; U Benzodiazapine Screen Not Detected; U Buprenorphine Screen Not Detected; U Cannabinoids Screen Not Detected; U Cocaine Screen Not Detected; U Methadone Screen Not Detected; U Methamphetamine Screen Not Detected; U Opiates Screen Not Detected; U Oxycodone Screen Not Detected; U Phencyclidine Screen Not Detected; U Propoxyphene Screen Not Detected
[2021-09-05 01:29] LABS: PCO2 Arterial 34.3 mmHg (35-45); PO2 Arterial 223 mmHg (80-100); pH Blood Arterial 7.48 (7.35-7.45)
[2021-09-05 05:02] LABS: BASOPHILS ABSOLUTE AUTO 0.01 K/mm3 (0.00-0.23); BASOPHILS PERCENT AUTO 0 % (0-2); EOSINOPHILS PERCENT AUTO 0 % (0-6); Hematocrit 35.1 % (33.0-51.0); Hemoglobin 11.8 g/dL (11.5-16.0); IMMATURE GRAN ABSOLUTE AUTO 0.06 K/mm3 (0.00-0.10); IMMATURE GRAN PERCENT AUTO 1 % (0-1); LYMPHOCYTES ABSOLUTE AUTO 0.66 K/mm3 (0.84-5.20); LYMPHOCYTES PERCENT AUTO 7 % (21-46); MONOCYTES ABSOLUTE AUTO 1.02 K/mm3 (0.16-1.47); MONOCYTES PERCENT AUTO 10 % (4-13); Mean Corpuscular HGB 29.3 pg (26.0-34.0); Mean Corpuscular HGB Conc 33.6 g/dL (31.5-36.5); Mean Corpuscular Volume 87 fL (80-100); Mean Platelet Volume 8.5 fL (9.1-12.4); NEUTROPHILS ABSOLUTE AUTO 8.29 K/mm3 (1.96-9.15); NEUTROPHILS PERCENT AUTO 83 % (41-73); Platelet Count 332 K/mm3 (150-400); RDW Coefficient Variation 12.2 % (11.7-14.2); RDW Standard Deviation 39.6 fL (35.1-46.3); Red Blood Cell Count 4.03 M/mm3 (3.80-5.20); White Blood Cell Count 10.04 K/mm3 (4.00-11.30)
[2021-09-05 05:22] LABS: Alanine Aminotransfer (ALT/SGP 46 U/L (12-78); Albumin, Blood 2.2 g/dL (3.4-5.0); Albumin/Globulin Ratio 0.5 (0.8-1.8); Alk Phos 134 U/L (50-136); Anion Gap 8 mmol/L (6-16); Aspartate Aminotrans (AST/SGOT 106 U/L (12-37); Bilirubin, Total 0.5 mg/dL (0.1-1.0); Blood Urea Nitrogen 45 mg/dL (8-24); Bun/Creatinine Ratio 66.4 (12.0-20.0); CO2, Blood 24 mmol/L (21-32); Calcium, Blood 10.3 mg/dL (8.5-10.1); Chloride, Blood 102 mmol/L (98-108); Creatinine, Blood 0.68 mg/dL (0.40-1.00); Globulin, Blood 4.5 g/dL (2.2-4.0); Glomerular Filtration Rate >60 (60-); Glucose, Blood 118 mg/dL (70-99); Potassium, Blood 3.3 mmol/L (3.5-5.5); Sodium, Blood 134 mmol/L (136-145); Total Protein, Blood 6.7 g/dL (6.4-8.2)
--- NOTE | 2021-09-05 19:29 | NUR ---
RECEIVED PT ON MED FLOOR VIA STRECTHER. PT AAOX3 ABLE TO VOICE NEEDS. ON RA NO DISTRESS NOTED. O2 @ 2L AVAILABLE, GENERALIZED WEAKNESS NOTED. PT ABLE TO HELP WITH TURNNG AND REPOSITIONING. PT WAS ADMITTED WITH DX OF UTI, GENERALIZED WEAKNESS. PER REPORTED PT HAS HISTORY OF MULTIPLE FALLS. MULTIPLE BRUSING OBSERVED. IV ACCESS 2O GUAGE TO LAC INTACT AND PATENT. NO SWELLING OR REDNESS NOTED. BED IN LOWEST POSITION. CALL LIGHT IN PLACE
[2021-09-06 05:12] LABS: BASOPHILS ABSOLUTE AUTO 0.02 K/mm3 (0.00-0.23); BASOPHILS PERCENT AUTO 0 % (0-2); EOSINOPHILS ABSOLUTE AUTO 0.02 K/mm3 (0.00-0.68); EOSINOPHILS PERCENT AUTO 0 % (0-6); Hematocrit 32.2 % (33.0-51.0); Hemoglobin 10.7 g/dL (11.5-16.0); IMMATURE GRAN ABSOLUTE AUTO 0.06 K/mm3 (0.00-0.10); IMMATURE GRAN PERCENT AUTO 1 % (0-1); LYMPHOCYTES ABSOLUTE AUTO 0.64 K/mm3 (0.84-5.20); LYMPHOCYTES PERCENT AUTO 10 % (21-46); MONOCYTES ABSOLUTE AUTO 0.72 K/mm3 (0.16-1.47); MONOCYTES PERCENT AUTO 11 % (4-13); Mean Corpuscular HGB 29.9 pg (26.0-34.0); Mean Corpuscular HGB Conc 33.2 g/dL (31.5-36.5); Mean Corpuscular Volume 90 fL (80-100); Mean Platelet Volume 8.8 fL (9.1-12.4); NEUTROPHILS ABSOLUTE AUTO 5.15 K/mm3 (1.96-9.15); NEUTROPHILS PERCENT AUTO 78 % (41-73); Platelet Count 275 K/mm3 (150-400); RDW Coefficient Variation 12.3 % (11.7-14.2); RDW Standard Deviation 40.5 fL (35.1-46.3); Red Blood Cell Count 3.58 M/mm3 (3.80-5.20); White Blood Cell Count 6.61 K/mm3 (4.00-11.30)
[2021-09-06 06:25] LABS: Anion Gap 8 mmol/L (6-16); Blood Urea Nitrogen 28 mg/dL (8-24); Bun/Creatinine Ratio 49.9 (12.0-20.0); CO2, Blood 24 mmol/L (21-32); Calcium, Blood 9.9 mg/dL (8.5-10.1); Chloride, Blood 102 mmol/L (98-108); Creatinine, Blood 0.56 mg/dL (0.40-1.00); Glomerular Filtration Rate >60 (60-); Glucose, Blood 95 mg/dL (70-99); Sodium, Blood 134 mmol/L (136-145)
--- NOTE | 2021-09-06 07:12 | NUR ---
SHIFT SUMMARY: PATIENT MOBILITY IS IMPROVING, NOW A ONE ASSIST TO THE BSC. HYPOTENTION OBSERVED 93/51. DR AJ WAS NOTIFIED AND ORDER FOR A 500ML NS BOLUS WAS OBTAINED. RECHECK ON BP WAS 107/64. PATIENT IS OBSESSED ABOVE LASIX THAT SHE SAY'S SHE TAKES AT HOME, NOT SEEN ON HOME MED LIST. EDUCATION WAS GIVEN ON HOW LASIX IS NOT APPROPIATE WITH HYPOTENSION AND SEPSIS. PATIENT WANTED DR GODOY TELEPHONE NUMBER AND WAS UPSET THAT WET COTTON FEEDER WAS UNABLE TO GIVE THE NUBER TO HER. PATIENT IS REPORTING GENERALIZED PAIN AND PAIN WITH URINATION.
--- NOTE | 2021-09-06 17:55 | NUR ---
PT REMAINS AAOX3 ABLE TO MAKE NEEDS KNOWN. COMPLIANT WITH MEDICATION REGIMEN. ASSIST X 1 FROM BED TO BSC, GENERALIZED WEAKNESS NOTED. MEDICATED FOR PAIN NEEDED WITH EFFECTIVE OUTCOME. NO COMPLAINTS VOICED. PT CONTAINS ON O2 AT 2L NEEDED. NO DISTRESS NOTED. PT'S NEIGHBOT CALLED AND QUESTION ABOUT PT'S STATUS PT IS AWARE AFTER COMMUNICATING WITH NEIGHBOR INSISTED THAT WRITE OR ANYONE SHOULD GIVE INFO ABOUT HER TO HER NEIGHBOR.TELE D/C TODAY. BED IN LOWEST POSITION. CALL LIGHT IN REACH.
[2021-09-07 05:39] LABS: Anion Gap 8 mmol/L (6-16); Blood Urea Nitrogen 19 mg/dL (8-24); Bun/Creatinine Ratio 35.6 (12.0-20.0); CO2, Blood 25 mmol/L (21-32); Calcium, Blood 9.4 mg/dL (8.5-10.1); Chloride, Blood 100 mmol/L (98-108); Creatinine, Blood 0.53 mg/dL (0.40-1.00); Glomerular Filtration Rate >60 (60-); Glucose, Blood 100 mg/dL (70-99); Sodium, Blood 133 mmol/L (136-145)
--- NOTE | 2021-09-07 17:51 | NUR ---
NO ACUTE CHANGES THIS SHIFT. PATIENT WORKED WITH PT/OT, UP WITH FWW, GB AND SBA. TOLERATING DIET. PAIN CONTROLLED WITH TYLENOL AND SOMA. VSS, ON RA. PT/OT RECOMMENDING SNF, HOWEVER PATIENT IS REFUSING TO GO. WANTS TO GO LIVE WITH HER SON YOSI IN [place]. FILLING AND PACKING SUPERVISOR IN TO TALK TO PATIENT. CALM AND COOPERATIVE WITH CARE, ABLE TO MAKE NEEDS KNOWN.
[2021-09-08 05:18] LABS: Hematocrit 36.3 % (33.0-51.0)
--- NOTE | 2021-09-08 05:21 | NUR ---
CALLED HOSPITALIST INFORMED HIM THAT THE IV FLUIDS ORDERED ON 09/04/21 WERE NOT GIVEN. HE ORDERED THE IV FLUIDS CANCELLED FOR NOW.
--- NOTE | 2021-09-08 05:44 | NUR ---
SHIFT SUMMARY 65 YR F ADMITTED ON 09/06/20 AFTER BEING FOUND DOWN IN HER HOME. FULL CODE. DX W/ RABDOMYOLYSIS AND UTI. SHE IS ALERT AND ORIENTED X 2 BUT IS VERY CHILD-LIKE IN HER MANNERISMS. SHE DID NOT SLEEP MUCH LAST NIGHT AND C/O NOT BEING ABLE TO URINATE DESPITE THE FACT THAT SHE IS PUTTING OUT URINE. SNF HAS BEEN RECOMMENDED FOR PT BUT SHE HAS WXPRESSED THAT SHE WANTS TO MOVE IN WITH HER SON IN [facility].
[2021-09-08 06:13] LABS: Albumin, Blood 2.1 g/dL (3.4-5.0); Anion Gap 10 mmol/L (6-16); Blood Urea Nitrogen 15 mg/dL (8-24); Bun/Creatinine Ratio 27.7 (12.0-20.0); CO2, Blood 21 mmol/L (21-32); Calcium, Blood 9.5 mg/dL (8.5-10.1); Chloride, Blood 103 mmol/L (98-108); Creatinine, Blood 0.54 mg/dL (0.40-1.00); Glomerular Filtration Rate >60 (60-); Glucose, Blood 98 mg/dL (70-99); Phosphorus, Blood 2.3 mg/dL (2.5-4.9); Potassium, Blood 4.4 mmol/L (3.5-5.5); Sodium, Blood 134 mmol/L (136-145)
[2021-09-08 17:19] LABS: Appearance, Urine Clear (Clear); Bilirubin, Urine Neg (Neg); Blood, Urine 2+ (Neg); Color, Urine Yellow (P-Yellow); Glucose Qualitative, Urine Neg (Neg); Ketones, Urine Neg (Neg); Leukocyte Esterase, Urine 3+ (Neg); Nitrite, Urine Neg (Neg); Protein, Urine 1+ (Neg); Urobilinogen, Urine NORM (Normal)
[2021-09-08 17:41] LABS: Amorphous Light (0-Heavy); Bacteria Few /hpf; Mucus Light (0-Heavy); Squamous Epithelial Cells Few /hpf (Few)
--- NOTE | 2021-09-08 18:40 | NUR ---
SHIFT SUMMARY PT IS AAOX4. EXTREMELY ANXIOUS AND CONSTANTLY REPEATS THE SAME THING NUMEROUS TIMES. FIXATED ABOUT URINE AND USING RESTROOM. C/O DISCOMFORT ON TODAY WHILE TRYING TO VOID. C/O CRAMPS AND ABD PAIN. NOTIFIED AND GOT ORDERS FOR BLADDER SCAN AND URINE CULTURE TO SEND. BLADDER SCAN SHOWED 1300 CC URINE AND SHE VOIDED, ONLY PUTTING OUT 400 CC WHEN WENT. NOTIFIED DR AGAIN AND SHE CALLED BACK IN PM WITH NEW ORDERS. GALICIA CATH 14F PLACED WITH NO ISSUES. PO LASIX AND FLOMAX ORDERED AND GIVEN. 1400 CC URINE INTO BAG WITHIN MINUTES. VSS. NAD NOTED. NO OTHER S/SX VOICED. DID GET RELIEF FROM GALICIA PLACED. GAVE HER A MUSCLE RELAXER WELL. TELE DISCONTINUED. WILL CONTINUE TO MONITOR IN CARE
[2021-09-09 05:05] LABS: BASOPHILS ABSOLUTE AUTO 0.03 K/mm3 (0.00-0.23); BASOPHILS PERCENT AUTO 1 % (0-2); EOSINOPHILS ABSOLUTE AUTO 0.05 K/mm3 (0.00-0.68); EOSINOPHILS PERCENT AUTO 1 % (0-6); Hematocrit 34.3 % (33.0-51.0); Hemoglobin 11.6 g/dL (11.5-16.0); IMMATURE GRAN ABSOLUTE AUTO 0.16 K/mm3 (0.00-0.10); IMMATURE GRAN PERCENT AUTO 4 % (0-1); LYMPHOCYTES ABSOLUTE AUTO 0.93 K/mm3 (0.84-5.20); LYMPHOCYTES PERCENT AUTO 21 % (21-46); MONOCYTES ABSOLUTE AUTO 0.43 K/mm3 (0.16-1.47); MONOCYTES PERCENT AUTO 10 % (4-13); Mean Corpuscular HGB 29.7 pg (26.0-34.0); Mean Corpuscular HGB Conc 33.8 g/dL (31.5-36.5); Mean Corpuscular Volume 88 fL (80-100); Mean Platelet Volume 8.4 fL (9.1-12.4); NEUTROPHILS ABSOLUTE AUTO 2.94 K/mm3 (1.96-9.15); NEUTROPHILS PERCENT AUTO 65 % (41-73); Platelet Count 395 K/mm3 (150-400); RDW Standard Deviation 38.5 fL (35.1-46.3); Red Blood Cell Count 3.91 M/mm3 (3.80-5.20); White Blood Cell Count 4.54 K/mm3 (4.00-11.30)
[2021-09-09 05:40] LABS: Albumin, Blood 2.2 g/dL (3.4-5.0); Anion Gap 8 mmol/L (6-16); Blood Urea Nitrogen 12 mg/dL (8-24); Bun/Creatinine Ratio 21.4 (12.0-20.0); CO2, Blood 26 mmol/L (21-32); Calcium, Blood 9.5 mg/dL (8.5-10.1); Chloride, Blood 99 mmol/L (98-108); Creatinine, Blood 0.56 mg/dL (0.40-1.00); Glomerular Filtration Rate >60 (60-); Glucose, Blood 98 mg/dL (70-99); Phosphorus, Blood 2.5 mg/dL (2.5-4.9); Potassium, Blood 4.1 mmol/L (3.5-5.5); Sodium, Blood 133 mmol/L (136-145)
--- NOTE | 2021-09-09 05:53 | NUR ---
SHIFT SUMMARY PT IS AAOX2. PT IS EXCESSIVELY ANXIOUS, ANF FORGETFUL. PT IS REPEATDLY ASKING THE SAME QUESTION OVER AND OVER. PT WAS COMPLAINING OF ABDOMINAL DISCOMFORT. TYLENOL WAS GIVEN . SOMA WAS GIVEN , NOTHING SEEMS TO WORK . PT KEPT CALLING ALL NIGHT, USING CONTIMUOUSLY THE CALL LIGHT , ASKING FOR THE SAME QUESTION. FIXATING ON URINE IN THE GALICIA. PT NEEDS SOMETHING TO HELP HER SLEEP AND HELPING WITH HER ANXIETY. LORAZEPAM SEEMS NOT WORKING WITH PATIENT. BED ALARM ACTIVATED, IN LOWER POSITION AND CALL LIGHT IN REACH. WILL CONTINUE TO MONITOR.
--- NOTE | 2021-09-09 18:01 | NUR ---
SUMMARY PT SITTING UP AT THE EDGE OF THE BED EATING HER DINNER, PT HAS BEEN PLEASANT AND COOPERATIVE WITH CARE FOR MOST OF THE DAY, AFTER LUNCH SHE STATED SHE DID NOT FEEL GOOD AND REFUSED THERAPY, PT HAD AN ULTRASOUND TODAY AND PT IS HOPEFUL TO GET THE CATHETER REMOVED, STILL WAITING FOR RESULTS, VSS, WILL CONT TO MONITOR
[2021-09-09] MEDS ORDERED: FURO20 PO (21:07)
[2021-09-09] MEDS ORDERED: KLONOPIN0.5 M2 PO (21:08)
[2021-09-09] MEDS ORDERED: LOSARTAN POTASS25 M2 PO (21:08)
[2021-09-09] MEDS ORDERED: LEVSOD112 PO (21:08)
[2021-09-09] MEDS ORDERED: SOMA350 M4 PO (21:09)
[2021-09-09] MEDS ORDERED: K-Dur10 MEQ PO (21:09)
--- NOTE | 2021-09-10 06:21 | NUR ---
SHIFT SUMMARY: GALICIA WAS REMOVED PER MD ORDER. PATIENT HAS VOIDED 200 MLS, BLADDER SCAN SHOWS 257 MLS PVR. PATIENT IS OBSESSED WITH GETTING LASIX EARLY. " I WILL PEE ALOT THEN". ABLE TO AMBULATE TO THE BATHROOM WITH FWW AND SBA. GAIT IS STRONGER.
--- NOTE | 2021-09-10 07:10 | NUR ---
SHIFT SUMMARY: PATIENT CONTINUES TO BE CONFUSED UPON AWAKENING, DOES NOT KNOW WERE HE IS BUT IS EASILY REORIENTED. BP'S HAVE BEEN ELEVATED CONSISTANTLY WITH A WRIST CUFF. UPPER ARM CUFF WAS TRIED AND A READING OF 125/75 WAS OBTAINED. YESTERDAY CHANGES WERE MADE TO BP MEDS, WITH GOOD EFFECT. PATIENT IS INC. OF URINE AT TIMES BUT WILL CALL FR THE URINAL, NEEDS ASSISTANCE OR WILL SPILL.
--- NOTE | 2021-09-10 17:03 | NUR ---
SUMMARY PT SITTING UP IN BED WATCHING TV, PT HAS BEEN COOPERATIVE WITH CARE T/O THE DAY, UP WITH 1P ASSIST AND THE WALKER TO THE BATHROOM, PT MED PER EMAR FOR C/O PAIN, SON IN TO VISIT, PT HAS BEEN ABLE TO VOID WITHOUT DIFFICULTY, HOPEFUL TO DC HOME WITH HOME HEALTH VS SNF, CARE MANAGEMENT IN TO SPEAK WITH THE PT REGARDING DC PLAN, VSS, WILL CONT TO MONITOR
--- NOTE | 2021-09-11 05:48 | NUR ---
SHIFT SUMMARY: PATIENT IS A&OX4, ABLE TO MAKE NEEDS KNOWN. UP TO THE BSC WITH ASSIST X1 AND FWW, GAIT IS UNSTEADY. PATIENT CONTINUES TO HAVE GENERALIZED CHRONIC PAIN, PRN TYLENOL AND SOMA WERE GIVEN X2 WITH GOOD EFFECT. URINE IS CLEAR YELLOW..
--- NOTE | 2021-09-11 16:13 | NUR ---
SHIFT SUMMARY PATIENT IS ALERT AND ORIENTED X2. PATIENT HAS BEEN PLEASENT AND COOPERATIVE WITH CARE. PATIENT HAS BEEN NEEDING TO USE THE BSC EVERY 45 MIN WITH MINIMAL OUTPUT EACH TIME. PATIENT HAS COMPLAINED OF ABDOMEN DISCOMFORT. BLADDER SCAN ORDERED AND SHOWED 230ML. PATIENT IS A ONE PERSON ASSIST TO BSC. PATIENT AGREED TO SNF. VITAL SIGNS REVIEWEDD. NO ACUTE ISSUES THIS SHIFT. BED IN LOWEST AND LOCKED POSITION. WILL MONITOR UNTIL SHIFT CHANGE.
--- NOTE | 2021-09-12 17:39 | NUR ---
SHIFT SUMMARY: NO ACUTE EVENTS. PT REQUESTED IMMODIUM, STATING SHE WAS HAVING DIARRHEA, BLAMED KEFLEX, THEN THE HOSPITAL FOOD. EDUCATED PT THAT STOOL WOULD NEED TO BE OBSERVED BEFORE CALLING PROVIDER, MAY NEED TO RULE OUT INFECTIOUS PROCESS. STOOL WAS BROWN AND FORMED, THUS NO DIARRHEA. C/O LOW BACK PAIN; MEDICATED PER EMAR WITH GOOD EFFECT BUT BECOMES MORE CONFUSED WHEN TAKING SOMA. PROVIDER MADE AWARE, SOMA CHANGED TO FLEXERIL. BP WAS A LITTLE SOFT THIS MORNING. PSYCHIATRY WILL SEE PT ON TUESDAY. IS AWAITING PLACEMENT.
--- NOTE | 2021-09-12 22:20 | NUR ---
PT EXPRESSES THAT SHE IS "VERY UPSET" WITH HER MEDICATION CHANGES THAT WERE ORDERED EARLIER TODAY. SHE IS VERY AGITATED WITH THE CHANGE FROM HER SOMA TO FLEXERIL SAYING "I HAVE TAKEN SOMA FOR YEARS AND FLEXERIL DOESN'T WORK." PER PROVIDER NOTE FROM THIS MORNING, THE PATIENT MAY NOT BE MENTALLY COGNIZANT ENOUGH FOR DISCHARGE BACK TO LIVING ALONE. PREVIOUS RN REPORTED THE PT WAS ALTERED AFTER MEDICATED WITH SOMA AND THE PT WAS UNABLE TO FULLY PARTICIPATE IN THE PROVIDER VISIT. PT STATES "DO YOU KNOW HOW TIRED I AM?" WHEN TOLD THIS INFORMATION. SHE REQUESTED TO SPEAK WITH THE AUTO LOCATOR. I SPOKE WITH THALIA ROSARIO RN ABOUT PT'S CONCERN, WHO THEN CAME TO INFORM THE PT OF THE SAME INFORMATION AND RECOMMEND THAT THE PT DISCUSS THE CHANGE WITH THE [facility] HOSPITALIST IN THE MORNING. PT THEN DEMANDS THAT DR. WELCH BE CONSULTED SINCE "HE IS MY PRIMARY AND I CALLED HIM AT HOME AND HE SAYS THAT HE ISN'T ALLOWED IN HERE. HE'S A LOT NICER THAN YOUR DOCTORS." PT INFORMED THAT DR. WELCH WAS NOT CONSULTED FOR HER CASE AND SHE COULD SPEAK WITH THE HOSPITALIST. PT SAYS THAT SHE WILL BE "GOING HOME TUESDAY AND JUST TAKING MY NORMAL SOMA." SHE CONTINUES TO REQUEST ME SPECIFICALLY FOR ALL CARE AND REPEATS "YOU JUST DON'T UNDERSTAND HOW UPSET I AM." PT MEDICATED WITH THE ORDERED 5 MG OF FLEXERIL AND WAS VERBALLY UPSET THAT IT WAS HALF OF THE PILL. SHE TOLD ME TO "GIVE ME THE OTHER HALF" AND I INFORMED THE PT THAT I WAS FOLLOWING THE ORDER. SHE THEN RESPONDED WITH "WELL YOU'LL GIVE ME THE OTHER HALF LATER." PT IS RESTING IN BED AT THIS TIME.
--- NOTE | 2021-09-13 04:35 | NUR ---
DREDGE ENGINEER SUMMARY PT ADMITTED WITH ACUTE RHABDO AFTER A FALL. FULL CODE. THERE IS CONCERNS ABOUT THE PATIENT LIVING AT HOME ALONE. SHE HAS A REFERRAL FOR EVAL BY DR. HUNT TOMORROW. PT IS ADAMANT SHE WILL BE GOING HOME ON TUESDAY. SHE WAS VERY UPSET ABOUT CHANGES TO HER MEDICATIONS (SEE RN NOTE). MEDICATED X2 WITH TYLENOL FOR PAIN AND X2 WITH FLEXERIL FOR SPASM. PT UP TO BSC WITH ONE PERSON ASSIST. PT USING CALL LIGHT APPROPRIATELY. PT IS ALERT AND ORIENTED X2-3 AND IS QUITE OFTEN FORGETFUL.
--- NOTE | 2021-09-13 17:12 | NUR ---
SHIFT SUMMARY: NO ACUTE EVENTS. C/O BACK PAIN X 1, MEDICATED WITH TYLENOL. EDUCATED PT THAT HER SOMA HAD BEEN RE-ORDERED BY PROVIDER, BUT IT WAS TO BE USED AT HS ONLY, TO WHICH SHE VERBALIZED UNDERSTANDING. AMBULATED IN HALLWAY X 1 WITH OWN WALKER, GAIT A BIT WEAK. EDUCATED, BOTH VERBALLY AND PRINTED HAND OUT, ABOUT POSSIBLE CAUSES AND TREATMENTS OF URINARY RETENTION, WHICH SEEMS TO BE OCCUPYING MOST HER THOUGHTS. HAD SWITCHED DIET TO PUREED PT HAS VERY POOR DENTITION; SHE TOLERATED WELL AND THOUGHT IT WAS VERY TASTY, ATE MOST OF HER MEALS TODAY. GETTING UP TO BSC WITH 1 PERSON ASSIST. D/C PLAN PENDING, ALTHOUGH PT THINKS SHE IS GOING TO HER HOME TOMORROW.
--- NOTE | 2021-09-14 05:36 | NUR ---
TERRITORY REPRESENTATIVE SUMMARY PT COMPLAINED OF ANXIETY AND MUSCLE SPASM AT HS. PT BP WAS 91/51 AT THAT TIME AND I INFORMED PT THAT I WOULD NOT GIVE HER SEDATING MEDICATIONS UNTIL SHE DRANK A CUP OF WATER AND I RETOOK HER BP. PT DRANK WATER AND BP WAS IMPROVED TO 116/64. PT GIVEN HER SOMA, KLONOPIN, TYLENOL, AND MELATONIN AND HS. SHE RESTED WELL. PT VERY FOCUSED ON HER URINARY OUTPUT THROUGHOUT THE SHIFT. ONE PERSON STAND AND SHUFFLE TO [facility]. NO OTHER CONCERNS THIS SHIFT.
[2021-09-14 06:34] LABS: Anion Gap 4 mmol/L (6-16); Blood Urea Nitrogen 13 mg/dL (8-24); Bun/Creatinine Ratio 16.7 (12.0-20.0); CO2, Blood 30 mmol/L (21-32); Calcium, Blood 9.7 mg/dL (8.5-10.1); Chloride, Blood 98 mmol/L (98-108); Creatinine, Blood 0.78 mg/dL (0.40-1.00); Glomerular Filtration Rate >60 (60-); Glucose, Blood 105 mg/dL (70-99); Sodium, Blood 132 mmol/L (136-145)
--- NOTE | 2021-09-14 16:02 | NUR ---
SHIFT SUMMARY THE PATIENT IS ALERT AND ORIENTED X3, PLEASANT AND COOPERATIVE WITH CARE. THE PATIENT CAN BECOME FIXATED ON MEDICATIONS THAT THEY ARE TAKING. THE PATIENT WAS MEDICATED ONCE FOR PAIN THIS SHIFT. PSYCH CONSULT WAS DONE. PATIENT HAS BE VOIDING THIS SHIFT WITHOUT ISSUE. NO ACUTE CHANGES THIS SHIFT VSS. WILL CONTINUE TO CARE FOR UNTIL SHIFT REPORT IS GIVEN TO ONCOMING NURSE.
--- NOTE | 2021-09-15 06:08 | NUR ---
SHIFT SUMMARY ASSUMED CARE AT 1900. PT AAOX4, ANXIOUS. PT BECOMES FIXATED ON TOPICS AND REPEATEDLY ASKS THE SAME QUESTIONS. PT DID NOT SLEEP MUCH DURING THE SHIFT DESPITE RECEIVING KLONOPIN AND SOMA. MEDICATED ONCE WITH PRN TYLENOL FOR C/O BACK PAIN. PT C/O ACID REFLUX THIS MORNING AND REQUESTED PEPCID. HOSPITALIST NOTIFIED AND NEW ORDERS RECEIVED AND CARRIED OUT, PT SATISFIED. PT VOIDED SEVERAL TIMES DURING SHIFT. DENIES ANY UTI SYMPTOMS, CONTINUES ON KEFLEX 500MG PO BID. BED IN LOW POSITION WITH THE CALL LIGHT WITHIN EASY REACH, BED ALARM ACTIVATED. WILL CONTINUE TO MONITOR.
--- NOTE | 2021-09-15 18:38 | NUR ---
SHIFT SUMMARY PT UP TO BSC SEVERAL TIMES TODAY AND VOIDING WELL. MULTIPLE REQUESTS FREQUENTLY. MOSTLY PLEASANT DESPITE BEING NEEDY AT TIMES. 1 PERSON ASSIST TO BSC. OFFERED HEAT FOR BACK BUT DECLINED. REPORTED TYLENOL NOT EFFECTIVE. NO FURTHER REPORT OF HEARTBURN SINCE BREAKFAST AFTER SIMETHECONE OFFERED AND DECLINED.
--- NOTE | 2021-09-16 06:25 | NUR ---
SHIFT SUMMARY ASSUMED CARE AT 1900. NO ACUTE EVENTS OVERNIGHT. PT REMAINS AAOX3, PLEASANT AND ANXIOUS. MEDICATED ONCE WITH TYLENOL AND SOMA PRN PER EMAR FOR COMPLAINTS OF BACK PAIN. NO OTHER COMPLAINTS VOICED. BED IN LOWEST POSITION WITH THE CALL LIGHT WITHIN EASY REACH. WILL CONTINUE TO MONITOR.
--- NOTE | 2021-09-16 18:27 | NUR ---
SHIFT SUMMARY: NO ACUTE EVENTS. C/O CHRONIC BACK PAIN, MEDICATED PER EMAR. A&O X 2, FORGETFUL AND CONFUSED AT TIMES. GETTING UP TO BSC WITH PERSON ASSIST, A BIT OBSESSED WITH HER URINE AND STOOL OUTPUT AMOUNTS. TOLERATING PUREED DIET.
--- NOTE | 2021-09-17 06:00 | NUR ---
SHIFT SUMMARY ASSUMED CARE AT 1900. NO ACUTE EVENTS OVERNIGHT. PT REMAINS AAOX2-3, PERIODS OF FORGETFULNESS/CONFUSION BUT EASILY REORIENTED. PT REMAINS ANXIOUS AND FIXATED ON BLADDER AND BOWEL OUTPUT. PT USES CALL LIGHT VERY FREQUENTLY. UP TO BSC SEVERAL TIMES WITH STANDBY ASSISTANCE X1 PERSON. PT MEDICATED FOR C/O CHRONIC BACK, HIPS AND LEGS PAIN PRN PER EMAR WITH MINIMAL EFFECT. BED IN LOW POSITION WITH THE CALL LIGHT WITHIN EASY REACH, BED ALARM ACTIVATED. WILL CONTINUE TO MONITOR.
--- NOTE | 2021-09-17 18:52 | NUR ---
SHIFT SUMMARY: C/O ABDOMINAL DISCOMFORT THIS AFTERNOON; BLADDER SCAN SHOWED > 500 ML IN BLADDER, STRAIGHT CATH PERFORMED WITH 650 ML URINE OUT. PATIENT IS OBSSESED WITH HER URINE AND STOOL OUTPUT. NO C/O PAIN, DID NOT ASK FOR PAIN MEDICATIONS. TOLERATING PUREE DIET. DID NOT WANT TO WALK IN HALLWAY TODAY. PLACEMENT PENDING.
--- NOTE | 2021-09-18 05:05 | NUR ---
SHIFT SUMMARY ASSUMED CARE AT 1900. NO ACUTE EVENTS OVERNIGHT. PT DID FALL ASLEEP FOR A FEW HOURS. WHILE AWAKE, PT REMAINS ANXIOUS AND FIXATED ON HER BOWEL AND BLADDER OUTPUT. PT USES THE CALL LIGHT TO CALL FOR ASSISTANCE NEEDED. PT REQUIRES MINIMAL ASSISTANCE/STANDBY ASSIST X1 PERSON TO THE BSC. BED IN LOW POSITION WITH THE CALL LIGHT WITHIN EASY REACH. WILL CONTINUE TO MONITOR.
--- NOTE | 2021-09-19 07:11 | NUR ---
SHIFT SUMMARY PT IS A 65 Y/O FEMALE, ADMITTED FOR ACUTE RHABDO. SHE IS A&O X 2, FORGETFUL & CONFUSED AT TIMES. CAN BE TEARFUL AT TIMES, AND HYPERFOCUSES ON ISSUES. 1PA TO THE BSC. PT HAS A HX OF URINARY RETENTION. THIS AM, PT WAS COMPLAINING OF BLADDER PAIN. BLADDER SCAN SHOWED 713 ML. PT WAS STRAIGHT CATHED AND 600 MLS REMOVED. PT MEDICATED FOR PAIN WITH PRN TYLENOL. NO C/O NAUSEA OR SOB. BP WAS LOW AT 93/59 AT HS. VITAL SIGNS OTHERWISE STABLE. NO OTHER ACUTE CHANGES IN PT CONDITION NOTED DURING THE NIGHT. WILL CONTINUE TO MONITOR AND TREAT PER EMAR UNTIL HAND OFF TO DAY SHIFT RN.
--- NOTE | 2021-09-19 17:10 | NUR ---
SHIFT SUMMARY PATIENT IS ALERT AND ORIENTED X2-3, PLEASANT AND COOPERATIVE WITH CARE. PATIENT WAS MEDICATED ONCE FOR PAIN THIS SHIFT. VITAMIN D SUPPLMENT STARTED TODAY. PATIENT HAS BEEN VOIDING. BLADDER SCANNED ONCE THIS SHIFT (367ML). PATIENT CONTINUES TO BE FIXATED ON BLADDER/BOWELS. PATIENT STATES THEY DO NOT WANT TO GO TO A LONGTERM. THEY WANT TO GO HOME OR LIVE WITH SON. VSS. NO ACUTE CHANGES. THIS NURSE WILL CONTINUE TO CARE FOR THE PATIENT UNTIL SHIFT REPORT IS GIVEN TO ONCOMING NURSE.
[2021-09-20 05:00] LABS: Hematocrit 37.4 % (33.0-51.0); Hemoglobin 11.9 g/dL (11.5-16.0); Mean Corpuscular HGB 29.4 pg (26.0-34.0); Mean Corpuscular HGB Conc 31.8 g/dL (31.5-36.5); Mean Corpuscular Volume 92 fL (80-100); Mean Platelet Volume 8.4 fL (9.1-12.4); Platelet Count 334 K/mm3 (150-400); RDW Coefficient Variation 12.8 % (11.7-14.2); RDW Standard Deviation 43.8 fL (35.1-46.3); Red Blood Cell Count 4.05 M/mm3 (3.80-5.20); White Blood Cell Count 3.99 K/mm3 (4.00-11.30)
[2021-09-20 06:06] LABS: Bun/Creatinine Ratio 21.2 (12.0-20.0); Calcium, Blood 10.2 mg/dL (8.5-10.1); Creatinine, Blood 1.04 mg/dL (0.40-1.00); Potassium, Blood 4.4 mmol/L (3.5-5.5)
--- NOTE | 2021-09-20 06:40 | NUR ---
SHIFT SUMMARY PT IS A 65 Y/O FEMALE, ADMITTED FOR ACUTE RHABDO. SHE IS A&O X 2-3, FORGETFUL AT TIMES. PT DID REPORT ABD AND BLADDER PAIN, AND WAS MEDICATED ONCE WITH PRN TYLENOL. NO C/O NAUSEA OR SOB. BLADDER SCAN THIS AM SHOWED S83 ML. VITAL SIGNS STABLE. NO ACUTE CHANGES IN PT CONDITION NOTED DURING THE NIGHT. WILL CONTINUE TO MONITOR AND TREAT PER EMAR UNTIL HAND OFF TO DAY SHIFT RN.
--- NOTE | 2021-09-20 17:27 | NUR ---
SHIFT SUMMARY PATIENT IS ALERT AND ORIENTED X3, FORGETFUL AND BECOMES FIXATED EASILY ON TOPICS. PATIENT IS A SBA TO THE BSC. ON RA. NO TELE. NO IV. THE PATIENT IS CURRENTLY WATCHING TV. THE PATIENT WAS MEDICATED X2 FOR PAIN THIS SHIFT. NO ACUTE CHANGES. BLADDER SCANNED ONCE THIS SHIFT PATIENT HAD 200ML PRESENT. NO COMPLAINTS OF ANY BURNING SENSATION THIS SHIFT.
--- NOTE | 2021-09-21 06:57 | NUR ---
SHIFT SUMMARY PT IS A 65 Y/O FEMALE, ADMITTED FOR ACUTE RHABDO. SHE IS A&O X 3, INDEPENDENT TO BSC AND 1PA IN THE ROOM. PT WAS MEDICATED FOR GENERALIZED PAIN 2X WITH PRN TYLENOL. NO C/O NAUSEA OR SOB. VITAL SIGNS STABLE. PT WAS BLADDER SCANNED AT HS, AND 200 ML FOUND IN HER BLADDER. NO STRAIGHT CATH PERFORMED DURING THE NIGHT. WILL CONTINUE TO MONITOR AND TREAT PER EMAR UNTIL HAND OFF TO DAY SHIFT RN.
--- NOTE | 2021-09-21 18:47 | NUR ---
SUMMARY- PT ALERT TO SELF AND PLACE, FAMILY. USES CALL LIGHT TO MAKE NEEDS KNOWN. ABLE TO GET UP SBA TO COMMODE. AMBULATED PANDEY WITH PT USING WALKER, STEADY ON FEET WITH GOOD STRENGTH. WORKING ON PLACEMENT. HEATHER AUGUSTINE HERE TO LUIS PT. PT REFUSING TO GO BECAUSE SHE DOESN'T WANT LOSE HER APARTMENT. IS IN DENIAL THAT SHE COULD CARE FOR HERSELF AT HOME. SON HELPING MAKE DECISION. NO CONCLUSIONS MADE TODAY. WILL REPORT TO LUIS ENRIQUE RN.
--- NOTE | 2021-09-21 19:13 | NUR ---
RECEIVED REPORT AND ASSUMED CARE OF PT. SHE IS LYING IN BED, AWAKE AND ALERT, ASKING QUESTIONS ABOUT PLACEMENT AND STOOL SOFTENERS. SHE DENIES ANY OTHER NEEDS AT THIS TIME. SUSANA.
--- NOTE | 2021-09-22 01:48 | NUR ---
PT STATES SHE HAS BEEN UP TO THE BEDSIDE COMMODE THREE TIMES AND FEELS THAT SHE NEEDS TO URINATE, BUT HAS NOT BEEN ABLE TO. BLADDER SCAN DEMONSTRATED 304 ML. PT REASSURED, CUP OF WATER PROVIDED AT HER REQUEST. WCMIKE.
[2021-09-22 05:15] LABS: Hematocrit 37.9 % (33.0-51.0); Hemoglobin 11.9 g/dL (11.5-16.0); Mean Corpuscular HGB 29.4 pg (26.0-34.0); Mean Corpuscular HGB Conc 31.4 g/dL (31.5-36.5); Mean Corpuscular Volume 94 fL (80-100); Mean Platelet Volume 8.2 fL (9.1-12.4); Platelet Count 288 K/mm3 (150-400); RDW Coefficient Variation 12.6 % (11.7-14.2); RDW Standard Deviation 43.7 fL (35.1-46.3); Red Blood Cell Count 4.05 M/mm3 (3.80-5.20); White Blood Cell Count 3.71 K/mm3 (4.00-11.30)
--- NOTE | 2021-09-22 05:34 | NUR ---
SHIFT SUMMARY: ARNOLD IS A&OX4. VSS, NO ACUTE EVENTS OVERNIGHT. HER WBCs ARE TRENDING DOWN. SHE HAS VOICED CONCERN OVER HER BOWEL AND BLADDER HABITS. EDUCATION PROVIDED ON NUTRITION AND HYDRATION. PT STATES THAT SHE IS UNABLE TO DRINK MUCH WATER BECAUSE SHE "HOLDS" IT IN HER BLADDER AND KIDNEYS. SHE DID TAKE THE MIRALAX THIS AM. SHE IS INDEPENDENT TO THE BEDSIDE COMMODE, USES THE CALL LIGHT APPROPRIATELY, AND IS ABLE TO MAKE HER NEEDS KNOWN, TOLERATING PO LIQUIDS WELL. SHE STATED THAT SHE DID EAT HER DINNER LAST NIGHT D/T FEELING CONSTIPATED. PRUNE JUICE OFFERED. SHE IS LYING IN BED WITH THE CALL LIGHT IN REACH. WILL REPORT TO DAY SHIFT RN.
[2021-09-22 05:57] LABS: Anion Gap 8 mmol/L (6-16); Blood Urea Nitrogen 15 mg/dL (8-24); Bun/Creatinine Ratio 20.1 (12.0-20.0); CO2, Blood 26 mmol/L (21-32); Calcium, Blood 10.1 mg/dL (8.5-10.1); Chloride, Blood 102 mmol/L (98-108); Creatinine, Blood 0.75 mg/dL (0.40-1.00); Glomerular Filtration Rate >60 (60-); Glucose, Blood 97 mg/dL (70-99); Phosphorus, Blood 3.4 mg/dL (2.5-4.9); Potassium, Blood 4.1 mmol/L (3.5-5.5); Sodium, Blood 136 mmol/L (136-145)
--- NOTE | 2021-09-22 12:12 | NUR ---
PATIENT GAVE VERBAL PERMISSION FOR THIS TRIPLE VALVE TESTER TO PROVIDE CARE.
--- NOTE | 2021-09-22 18:23 | NUR ---
SUMMARY- PT ALERT AND ORIENTED. INDEPENDANT TO THE BSC, STEADY ON FEET. HAD BM THIS AM. TOLERATING FOOD AND FLUIDS. PLAN FOR HEATHER AUGUSTINE ON TUESDAY. PT HAS CHRONIC BACK PAIN- MEDICATED WITH TYLENOL, STATED RELEIF.
--- NOTE | 2021-09-23 18:14 | NUR ---
PT SUMMARY: NO ACUTE CHANGE FOR THE SHIFT, VITALS REMAINED STABLE. INDEPENDENT IN THE ROOM. STILL AWAITING FOR PLACEMENT. POOR APPETITE REQUESTED ENSURE VANILLA EVERY MEAL. HAD NAUSEA X1 ZOFRAN WAS GIVEN AND WAS EFFECTIVE. NO OTHER ISSUES REPORTED. PT ABLE TO MAKE NEEDS KNOWN, WILL REPORT TO ONCOMING SHIFT
--- NOTE | 2021-09-24 04:47 | NUR ---
PT pleasnt & cooperative with mild confusion at times. Up to [facility] indep & she is able to communicate. HAd rhabdo from a fall in apartment where she was down alone for over 4 hours. PT has hx of kidney disease & has seen DR Boss in the past. She does have poor appetite declines snacks. Chronic head neck & back pain tx with soma & tyle 650 mg. HAs bowel care ordered scheduled & PRN & declines prune juice. Takes daily prn miralax & 2 senacot S. discussed prune juice or other options to relieve constipation. Declined. At one point PT said she feels like something in vaginal area falls out with ambulation but no obvious cystocele. Post void residual 1 ml per bladder scan. DC planning to [facility] PT has Son who lives out of state involved.
--- NOTE | 2021-09-24 18:43 | NUR ---
SHIFT NOTE PT HAS BEEN INDEPENDANT IN ROOM T/O THE DAY. SHE HAD A VERY SCANT BM TODAY. PT STILL REFUSES TO DRINK PO FLUIDS STATING THAT SHE HAS BEEN TOLD NOT TO DRINK FLUIDS R/T TO HER DIAGNOSIS WITH STAGE 2 KIDNEY FAILURE 5 YEARS AGO THAT SHE ALSO STS SHE HAS NOT FOLLOWED UP SINCE DIAGNOSIS. PT CONFUSED, SHE IS REDIRECTABLE. VSS.
--- NOTE | 2021-09-25 06:23 | NUR ---
Shift notes Patient anxious about not having bowel movement. She requested laxative which was given. She slept well during the night. Patient remain stable, no acute changes noted.
--- NOTE | 2021-09-25 17:36 | NUR ---
SHIFT NOTE PT WITH C/O ABD PAIN AND NAUSEA TODAY. VSS. INDEPENDANT IN ROOM UP TO BEDSIDE COMMODE. PT DID HAVE TWO VERY SMALL BMs TODAY WHICH SHE APPEARS TO BE FIXATED ON THE FIRMNESS OF HER STOOL. OTHERWISE THERE ARE NO ACUTE CHANGES TO NOTE FOR THIS SHIFT. PT REMAINS A/O X2, EASILY CONFUSED
--- NOTE | 2021-09-25 21:00 | NUR ---
PT REQUESTING TO HAVE HER MEDICATIONS GIVEN AT A SPECIFIC TIME - SEE EMAR FOR FOLLOW UP PER PATIENT REQUEST. PT HAS BEEN UP INDEPENDENTLY TO THE [facility] WITHOUT COMPLICATIONS. PT REPORTS A HEADACHE, AND CHRONIC BACK PAIN - WILL MEDICATE PER ORDERS/PT REQUEST FOR TYLENOL. PT REQUESTED ZOFRAN - HOWEVER THEN REFUSED IT WHEN OFFERRED, REPORTED SHE DIDN'T NEED IT NOW. ICE WATER PROVIDED PER PT REQUEST. PT DENIES CHEST PAIN, SOB, OR NUMBNESS AND TINGLING. BED IN LOW POSITION. CALL LIGHT WITHIN REACH.
--- NOTE | 2021-09-26 00:29 | NUR ---
PT RESTING IN BED IN LOW SEMI FOWLERS POSITION. PT DROWSY. PT DENIES ANY REQUESTS AT THIS TIME. BED IN LOW POSITION. FLUIDS AT BEDSIDE. CALL LIGHT WITHIN REACH.
--- NOTE | 2021-09-26 05:49 | NUR ---
SHIFT SUMMARY - NO ACUTE CHANGES THROUGHOUT THIS SHIFT. PT HAS HAD SEVERAL SMALL SOFT BM'S TONIGHT - PT IS REQUESTING MIRALAX THIS AM - PROVIDED PER PT REQUEST. PT INDEPENDENT TO [facility], PER PT REQUEST THIS NOC. PT IS ANTICIPATING DC TO [facility] ON TUESDAY. PT HAS BEEN PLEASANT, AND COOPERATIVE WITH CARE. FLUIDS AT BEDSIDE. CALL LIGHT WITHIN REACH. BED IN LOW POSITION. PT SLEPT FOR APPX 7-8 HOURS TONIGHT.
--- NOTE | 2021-09-26 18:56 | NUR ---
SHIFT SUMMARY NO ACUTE CHANGES THIS SHIFT. MEDICATED FOR CHRONIC BACK PAIN X2. AWAITING PLACEMENT. PT IS TO DC TO [facility] ON TUESDAY. VSS.
[2021-09-27 05:23] LABS: Albumin, Blood 2.9 g/dL (3.4-5.0); Anion Gap 7 mmol/L (6-16); Blood Urea Nitrogen 17 mg/dL (8-24); Bun/Creatinine Ratio 20.2 (12.0-20.0); CO2, Blood 28 mmol/L (21-32); Calcium, Blood 9.9 mg/dL (8.5-10.1); Chloride, Blood 103 mmol/L (98-108); Creatinine, Blood 0.84 mg/dL (0.40-1.00); Glomerular Filtration Rate >60 (60-); Glucose, Blood 97 mg/dL (70-99); Phosphorus, Blood 3.4 mg/dL (2.5-4.9); Potassium, Blood 4.1 mmol/L (3.5-5.5); Sodium, Blood 138 mmol/L (136-145)
--- NOTE | 2021-09-27 08:42 | NUR ---
SUMMARY PT ABLE TO TRANSFER TO [facility].VOIDING WITHOUT DIFF.ENC PO INTAKE.
--- NOTE | 2021-09-27 16:13 | NUR ---
SHIFT SUMMARY PT AxOx4. PLEASANT AND COOPERATIVE WITH CARE. PT REPORTS CHRONIC BACK PAIN. MEDICATED PER EMAR. PT IS HAVING POOR APPETITE. PT STATES SHE HAD A LARGE BM YESTERDAY AFTER TAKING LAXATIVES. PT REPORTED NAUSEA AND UPSET STOMACH AFTER EATING LUNCH. MEDICATED PER EMAR. PT STATES SHE PROBABLY WONT EAT DINNER, BUT WILL TAKE SOME ENSURE. ENCOURAGE FLUID INTAKE. PT IS CURRENTLY RESTING IN BED WATCHING TV. VITALS REVIEWED. BP STILL RUNNING LOW. CALL LIGHT IN REACH. PT DENIES ANY NEEDS AT THIS TIME. CURRENT PLAN IS TO DC TO [facility] THIS TUESDAY.
--- NOTE | 2021-09-28 05:08 | NUR ---
AOX4 PLEASANT CALM MOOD IN THIS SHIFT REFUSE DOCUSATE SATING IT HURTS MY STOMACH PATIENT TEACHING DONE THE IMPORTATANCE PATIENT STATED UNDERSTAND AND SHE WILL TAKE IT TODAY DURING DAY TIME
[2021-09-28 15:54] LABS: Source, Urine Straight Cath
[2021-09-28 15:56] LABS: Bilirubin, Urine Neg (Neg); Blood, Urine 1+ (Neg); Glucose Qualitative, Urine Neg (Neg); Ketones, Urine Neg (Neg); Leukocyte Esterase, Urine 3+ (Neg); Nitrite, Urine Pos (Neg); Protein, Urine 1+ (Neg); Urobilinogen, Urine NORM (Normal)
[2021-09-28 16:06] LABS: Appearance, Urine Hazy (Clear); Color, Urine Pale Yellow (P-Yellow)
[2021-09-28 16:07] LABS: Amorphous Light (0-Heavy); Bacteria Many /hpf; Mucus Light (0-Heavy); Squamous Epithelial Cells Few /hpf (Few)
--- NOTE | 2021-09-28 18:24 | NUR ---
BP 92/52- HYPOTENSIVE AGAIN TODAY. PATIENT HAD FREQUENT URGES TO URINATE TODAY. STRAIGHT CATH UA WAS OBTAINED AND SENT TO [facility]. THERE IS AN ANTIBIOTIC ALREADY ORDERED OF TODAY. PATIENT REPORTS PAIN NEAR BLADDER AREA, AND STATES THAT SHE FEELS LIKE "SOMETHING IS GOING TO FALL OUT". SHE MADE COMMENTS THAT IT ISN'T POSSIBLE THERE IS A BABY. THIS MORNING SHE HAD LOWER BACK PAIN RATED 8-9 SHE HAS SCATTERED SPARCE CRACKLES UPPER AIRWAYS.
--- NOTE | 2021-09-29 03:26 | NUR ---
SHIFT SUMMARY AOX4 INITIAL DOSE CIPRO FOR UTI ADMIN NO ADVANCE REACTION NOTED PO FLUIDS ENCOURAGED AND OFFERED ASSISSITED TO THE BED SIDE COMMODE [place] URINE NOTED DENIES DSYURIA .
--- NOTE | 2021-09-29 12:29 | NUR ---
RESULT OF UA (GRAM NEG RAMON) CALLED INTO DR. HWANG. DR. HWANG CONFIRMED THAT CIPRO IS THE APPROPRIATE TREATMENT FOR THIS INFECTION.
--- NOTE | 2021-09-29 16:54 | NUR ---
PATIENT HAS HAD A GOOD SHIFT. SHE HAS LESS FREQUENT URINATION. SHE IS STILL CONCERNED WITH THE PAIN IN THE BACK/BLADDER AREA, AND LOOSE STOOL. PRN TYLENOL WAS ADMINISTERED THIS MORNING FOR THE BACK/BLADDER AND WAS EFFECTIVE. SHE DID NOT TAKE HER MIRALAX TODAY. PATIENT SPOKE WITH PERSONS WHO ASSISSTED HER WITH HER FUTURE PLACEMENT TO [facility] FOR TUESDAY MORNING. MOOD APPEARS MORE HOPEFUL AFTER SHE LEARNED MORE ABOUT PLACEMENT.
--- NOTE | 2021-09-30 03:49 | NUR ---
SHIFT SUMMARY PATIENT CONT WITH ABT/CIPRO FOR UTI STERLING DSYURIA PO FLUIDS OFFERED AND ENCOURAGE C/0 PAIN TO HER LOWER BACK TYLENOL ADMIN PER PATIENT REQUEST WITH POSITIVE EFFECT.
[2021-09-30] MEDS ORDERED: CIPR500 PO (12:54)
[2021-09-30] MEDS ORDERED: METO5A PO (12:54)
[2021-09-30] MEDS ORDERED: VITAMIN D5000 UNIT PO (12:55)
[2021-09-30] MEDS ORDERED: MIRT15 PO (12:55)
[2021-09-30] MEDS ORDERED: VISBIOME 112.51 EACH PO (12:55)
[2021-09-30] MEDS ORDERED: Acerola C500 MG PO (12:56)
--- NOTE | 2021-09-30 17:56 | NUR ---
SHIFT SUMMARY PT PLAN TO DC TOMORROW TO [facility]. DC ORDERS IN PLACE TODAY. PT EDUCATED ON HOW TO PROPERLY CLEAN HER SHANNON AREA AFTER USING THE BATHROOM TO HELP PREVENT UTIS, INCLUDING WIPING FRONT TO BACK, NOT HOLDING HER URINE FOR TOO LONG, AND THE USE OF CLEASING WIPES INSTEAD OF TISSUES. PT STATES SHE UNDERSTANDS THESE INSTRUCTIONS. NO OTHER ACUTE CHANGES IN ASSESSMENT AT THIS TIME. VS REVIEWED. PT SITTING UP IN BED, EATING DINNER. MEDICATED FOR PAIN ONCE THIS SHIFT.
--- NOTE | 2021-10-01 04:20 | NUR ---
SHIFT SUMMARY INCREASE ANXIETY NOTED DUE TO D/C TODAY TALKED TO PATIENT AND FINALLY CALM DOWN AND SLEPT C/O PAIN X 2 TO LOWER BACK FLUIDS ENCOURAGED AND TYLENOL ADM PER EMAR WITH POSTIVE EFFECT
--- NOTE | 2021-10-01 16:38 | NUR ---
SHIFT SUMMARY PATIENT IS ALERT AND ORIENTED X3. PATIENT IS PLEASENT AND COOPERATIVE WITH CARE. PATIENT WAS SUPPOSED TO HAVE TRANSFERRED TO [facility] TODAY. PATIENT HAD AN ASSESSMENT BY [facility] INTAKE, PLANS PENDING. PATIENT IS IND IN ROOM TO [facility]. PATIENT HAS HAD TYLENOL Q6 FOR BACK PAIN. PATIENT HAS HAD NO ACUTE EVENTS THIS SHIFT. VITAL SIGNS REVIEWED. CALL LIGHT IN PLACE. BED IN LOCKED LOWEST POSITION. WILL MONITOR UNTIL SHIFT CHANGE.
--- NOTE | 2021-10-02 05:11 | NUR ---
SHIFT SUMMARY NO ACUTE EVENTS IN THIS SHIFT PT CONT ABT/UTI CIPRO PO FLUIDS ENCOURAGED TEACHING AND REMIND PT WHO TO WIPE AFTER USING BATHROOM PT STATED UNDERSTOOD
--- NOTE | 2021-10-02 15:27 | NUR ---
SHIFT SUMMARY PATIENT IS ALERT AND ORIENTED X4. PATIENT IS PLEASENT AND COOPERATIVE WITH CARE. PATIENT HAS HAD NO ACUTE EVENTS THIS SHIFT. VITAL SIGNS REVIEWED. PATIENT IS A PLACEMENT ISSUE AND PLANS ARE PENDING TO DISCHARGE TO [facility]. PATIENT IS IND TO [facility]. CALL LIGHT IN PLACE. BED IN LOCKED AND LOWEST POSITION.
--- NOTE | 2021-10-03 05:01 | NUR ---
SHIFT SUMMARY A/O, ABLE TO MAKE NEEDS KNOWN. COOPERATIVE WITH CARE. APPEARED TO REST OVERNIGHT. CHRONIC BACK PAIN; MEDICATED PER EMAR. NO ACUTE CHANGES NOTED. AWAITING PLACEMENT. BED IN LOWEST POSITION. CALL LIGHT AND BELONGINGS WITHIN REACH. REPORT TO ONCOMING RN.
--- NOTE | 2021-10-03 17:25 | NUR ---
SHIFT SUMMARY; PATIENT REFUSED TO GET UP AND WALK IN ROOM TODAY. EXPRESSES THAT SHE IS SCARED TO FALL ON "THIS HARD FLOOR" PATIENT SAYS SHE WILL WALK AROUND AT [facility] SINCE THE FLOOR IS SOFTER THERE. PATIENT COMPLAINS OF ABDOMINAL DISCOMFORT TODAY. SAYS SHE THINKS HER CIPRO SHE TOOK THIS AM AT 0900 MADE HER STOMACH HURT. PATIENT DID NOT COMPLAIN OF ABDOMINAL DISCOMFORT DURING DAY ONLY THIS EVENING PATIENT SAYS SHE DOES NOT THINK SHE NEEDS TO HAVE A BOWEL MOVEMENT. SAYS STOMACH IS CRAMPING BUT NOT NAUSEATED.
--- NOTE | 2021-10-04 04:28 | NUR ---
SHIFT SUMMARY A/O, ABLE TO MAKE NEEDS KNOWN. COOPERATIVE WITH CARE. CALLS AND ANSWERS QUESTIONS APPROPRIATELY. C/O PAIN/DISCOMFORT FOR CHRONIC BACK; MEDICATED PER EMAR. NO ACUTE CHANGES NOTED OVERNIGHT. CONTINUES TO AWAIT PLACEMENT. BED REMAINS IN LOWEST POSITION. CALL LIGHT AND BELONGINGS WITHIN REACH. REPORT TO ONCOMING RN.
--- NOTE | 2021-10-04 17:27 | NUR ---
SHIFT SUMMARY; NO ACUTE CHANGES IN CONDITION DURING DAY. PER PATIENT SHE HAD BOUT OF VERY LOOSE STOOLS TODAY X 1. SHE TRANSFERS TO BEDSIDE COMMODE WITHOUT ASSIST. PATIENT USES CALL LIGHT APPROPRIATELY AND IS ABLE TO MAKE HER NEEDS KNOWN. SHE DOES COMPLAIN X 1 TODAY OF BACK PAIN AND IS MEDICATED WITH [facility] SUCCESS. WAITING FOR PLACEMENT NEXT WEEK AT [facility]. KEM VICENTE RN
--- NOTE | 2021-10-05 04:54 | NUR ---
SHIFT SUMMARY NO ACUTE CHANGES THIS EVENING. UP TO [facility] INDEPENDENTLY. VOIDING WELL. PT REPORTS THAT SHE HAD BEEN HAVING "DIARRHEA". ONLY ONE SMALL SOFT FORMED STOOL WITNESSED. MEDICATED W/ TYLENOL AND SOMA FOR CHRONIC BACK PAIN. VITAL SIGNS STABLE. PT AWAITS D/C TO [facility]. WILL CONTINUE TO MONITOR.
--- NOTE | 2021-10-06 14:33 | NUR ---
PT DISCHARGED FROM THE UNIT. NO IV. REPORT CALLED TO KEVIN AT [facility]. PT LEFT WITH TRANSPORT VIA WHEELCHAIR
== END 2021-10-06 13:10 | disposition home or self-care (01) | DRG 557 ==
LOC: ER 18:10 → ERHOLD 21:48 → ER 21:48 → ERHOLD 21:48 → MEDS 09-05 15:36 → ENPENDDIS 09-30 11:34 → MEDS 10-06 13:10
PROVIDERS: Emergency Medicine; Internal Medicine; Physician Assistant; ADMIT Internal Medicine
DX: M62.82 Rhabdomyolysis (principal); G93.41 Metabolic encephalopathy; J96.01 Acute respiratory failure with hypoxia; N39.0 Urinary tract infection, site not specified; E22.2 Syndrome of inappropriate secretion of antidiuretic hormone; G93.40 Encephalopathy, unspecified; J84.9 Interstitial pulmonary disease, unspecified; N17.9 Acute kidney failure, unspecified; Z20.822 Contact with and (suspected) exposure to COVID-19; E86.0 Dehydration; E83.52 Hypercalcemia; B96.20 Unspecified Escherichia coli [E. coli] as the cause of diseases classified elsewhere; R33.9 Retention of urine, unspecified; F32.A Depression, unspecified; K59.00 Constipation, unspecified; E55.9 Vitamin D deficiency, unspecified; F41.9 Anxiety disorder, unspecified; N18.30 Chronic kidney disease, stage 3 unspecified; E03.9 Hypothyroidism, unspecified; I12.9 Hypertensive chronic kidney disease with stage 1 through stage 4 chronic kidney disease, or unspecified chronic kidney disease; Z28.21 Immunization not carried out because of patient refusal; Z88.1 Allergy status to other antibiotic agents; Z88.2 Allergy status to sulfonamides; Z88.8 Allergy status to other drugs, medicaments and biological substances; Z79.899 Other long term (current) drug therapy; Z90.710 Acquired absence of both cervix and uterus; Z98.890 Other specified postprocedural states
CPT/HCPCS: 36415; 36600; 70450; 71045; 76770; 80048; 80053; 80069; 81001; 81003; 82306; 82550; 82553; 82803; 83735; 83880; 84439; 84443; 85014; 85018; 85025; 85027; 87077; 87086; 87186; 93005; 93010; 94760; 96372; 97116; 97129; 97162; 97166; 97530; 97535; 99285-25; A9270; G0378; J1650; J7030

== ENCOUNTER → 2021-10-23 | Outpatient (CLI) | payer OTHER ==
[~2021-10-23] MED LIST changes: +Acerola C500 MG PO; +CIPR500 PO; +FURO20 PO; +K-Dur10 MEQ PO; +KLONOPIN0.5 M2 PO; +LEVSOD112 PO; +LOSARTAN POTASS25 M2 PO; +METO5A PO; +MIRT15 PO; +SOMA350 M4 PO; +VISBIOME 112.51 EACH PO; +VITAMIN D5000 UNIT PO
[2021-10-23 17:51] LABS: Source, Urine Voided
[2021-10-23 18:37] LABS: Bilirubin, Urine Neg (Neg); Blood, Urine Neg (Neg); Glucose Qualitative, Urine Neg (Neg); Ketones, Urine Neg (Neg); Leukocyte Esterase, Urine Neg (Neg); Nitrite, Urine Neg (Neg); Protein, Urine Neg (Neg); Specific Gravity, Urine 1.015 (1.003-1.022); Urobilinogen, Urine NORM (Normal)
[2021-10-23 18:44] LABS: Color, Urine Pale Yellow (P-Yellow)
[2021-10-23 18:45] LABS: Appearance, Urine Clear (Clear)
== END ==
LOC: LAB SHORT 17:49
PROVIDERS: Nurse Practitioner Family
DX: R30.9 Painful micturition, unspecified (principal)
CPT/HCPCS: 81003

== ENCOUNTER → 2021-12-10 | Outpatient (CLI) | payer OTHER ==
[2021-12-10 13:23] LABS: BASOPHILS ABSOLUTE AUTO 0.03 K/mm3 (0.00-0.23); BASOPHILS PERCENT AUTO 1 % (0-2); EOSINOPHILS ABSOLUTE AUTO 0.16 K/mm3 (0.00-0.68); EOSINOPHILS PERCENT AUTO 3 % (0-6); Hematocrit 37.1 % (33.0-51.0); Hemoglobin 12.1 g/dL (11.5-16.0); IMMATURE GRAN ABSOLUTE AUTO 0.02 K/mm3 (0.00-0.10); IMMATURE GRAN PERCENT AUTO 0 % (0-1); LYMPHOCYTES ABSOLUTE AUTO 1.72 K/mm3 (0.84-5.20); LYMPHOCYTES PERCENT AUTO 28 % (21-46); MONOCYTES ABSOLUTE AUTO 0.56 K/mm3 (0.16-1.47); MONOCYTES PERCENT AUTO 9 % (4-13); Mean Corpuscular HGB 29.1 pg (26.0-34.0); Mean Corpuscular HGB Conc 32.6 g/dL (31.5-36.5); Mean Corpuscular Volume 89 fL (80-100); Mean Platelet Volume 8.7 fL (9.1-12.4); NEUTROPHILS ABSOLUTE AUTO 3.72 K/mm3 (1.96-9.15); NEUTROPHILS PERCENT AUTO 60 % (41-73); Platelet Count 319 K/mm3 (150-400); RDW Coefficient Variation 12.9 % (11.7-14.2); RDW Standard Deviation 42.5 fL (35.1-46.3); Red Blood Cell Count 4.16 M/mm3 (3.80-5.20); White Blood Cell Count 6.21 K/mm3 (4.00-11.30)
[2021-12-10 17:03] LABS: Alanine Aminotransfer (ALT/SGP 36 U/L (12-78); Albumin, Blood 3.7 g/dL (3.4-5.0); Albumin/Globulin Ratio 1.2 (0.8-1.8); Alk Phos 139 U/L (50-136); Anion Gap 5 mmol/L (6-16); Aspartate Aminotrans (AST/SGOT 23 U/L (12-37); Bilirubin, Total 0.2 mg/dL (0.1-1.0); Blood Urea Nitrogen 21 mg/dL (8-24); Bun/Creatinine Ratio 37.4 (12.0-20.0); CO2, Blood 27 mmol/L (21-32); Calcium, Blood 10.3 mg/dL (8.5-10.1); Chloride, Blood 101 mmol/L (98-108); Creatinine, Blood 0.56 mg/dL (0.40-1.00); Globulin, Blood 3.2 g/dL (2.2-4.0); Glomerular Filtration Rate >60 (60-); Glucose, Blood 96 mg/dL (70-99); Potassium, Blood 4.4 mmol/L (3.5-5.5); Sodium, Blood 133 mmol/L (136-145); Total Protein, Blood 6.9 g/dL (6.4-8.2)
== END | disposition home or self-care (01) ==
LOC: LAB 12:21 → LAB SHORT 12:21
PROVIDERS: Nurse Practitioner Family
DX: Z00.00 Encounter for general adult medical examination without abnormal findings (principal); E78.2 Mixed hyperlipidemia; N18.32 Chronic kidney disease, stage 3b
CPT/HCPCS: 80053; 82306; 85025

== ENCOUNTER → 2022-05-17 | Outpatient (CLI) | payer OTHER ==
[2022-05-17 19:36] LABS: Free Thyroxine 1.02 ng/dL (0.70-1.60)
[2022-05-17 19:42] LABS: Alanine Aminotransfer (ALT/SGP 31 U/L (12-78); Albumin, Blood 3.9 g/dL (3.4-5.0); Albumin/Globulin Ratio 1.1 (0.8-1.8); Alk Phos 105 U/L (50-136); Anion Gap 8 mmol/L (6-16); Aspartate Aminotrans (AST/SGOT 23 U/L (12-37); Bilirubin, Total 0.3 mg/dL (0.1-1.0); Blood Urea Nitrogen 13 mg/dL (8-24); Bun/Creatinine Ratio 16.8 (12.0-20.0); CHOL/HDL RATIO 4.5; CO2, Blood 23 mmol/L (21-32); Calcium, Blood 10.2 mg/dL (8.5-10.1); Chloride, Blood 99 mmol/L (98-108); Cholesterol 276 mg/dL (50-200); Creatinine, Blood 0.77 mg/dL (0.40-1.00); Globulin, Blood 3.5 g/dL (2.2-4.0); Glomerular Filtration Rate 84 (60-); Glucose, Blood 97 mg/dL (70-99); HDL Cholesterol 62 mg/dL (>39); LDL/HDL RATIO 2.6; Low Density Lipoprotein Chol 162 mg/dL (0-110); Potassium, Blood 4.7 mmol/L (3.5-5.5); Sodium, Blood 130 mmol/L (136-145); Total Protein, Blood 7.4 g/dL (6.4-8.2); Triglycerides 258 mg/dL (30-160); Triiodothyronine, Free 2.11 pg/mL (2.18-3.98); Very Low Density Lipoprot Chol 51 mg/dL (6-32)
== END | disposition home or self-care (01) ==
LOC: LAB SHORT 17:24
PROVIDERS: Nurse Practitioner Family
DX: E78.2 Mixed hyperlipidemia (principal); E87.5 Hyperkalemia; E03.9 Hypothyroidism, unspecified
CPT/HCPCS: 80053; 80061; 84439; 84443; 84481

== ENCOUNTER → 2023-03-07 | Outpatient (CLI) | payer OTHER ==
[2023-03-07 13:35] LABS: BASOPHILS ABSOLUTE AUTO 0.04 K/mm3 (0.00-0.23); BASOPHILS PERCENT AUTO 1 % (0-2); EOSINOPHILS ABSOLUTE AUTO 0.23 K/mm3 (0.00-0.68); EOSINOPHILS PERCENT AUTO 4 % (0-6); Hematocrit 40.4 % (33.0-51.0); IMMATURE GRAN ABSOLUTE AUTO 0.02 K/mm3 (0.00-0.10); IMMATURE GRAN PERCENT AUTO 0 % (0-1); LYMPHOCYTES ABSOLUTE AUTO 1.34 K/mm3 (0.84-5.20); LYMPHOCYTES PERCENT AUTO 23 % (21-46); MONOCYTES ABSOLUTE AUTO 0.46 K/mm3 (0.16-1.47); MONOCYTES PERCENT AUTO 8 % (4-13); Mean Corpuscular HGB 28.1 pg (26.0-34.0); Mean Corpuscular HGB Conc 32.2 g/dL (31.5-36.5); Mean Corpuscular Volume 87 fL (80-100); Mean Platelet Volume 8.8 fL (9.1-12.4); NEUTROPHILS ABSOLUTE AUTO 3.78 K/mm3 (1.96-9.15); NEUTROPHILS PERCENT AUTO 65 % (41-73); Platelet Count 308 K/mm3 (150-400); RDW Coefficient Variation 12.5 % (11.7-14.2); RDW Standard Deviation 40.3 fL (35.1-46.3); Red Blood Cell Count 4.62 M/mm3 (3.80-5.20); White Blood Cell Count 5.87 K/mm3 (4.00-11.30)
[2023-03-07 15:06] LABS: Free Thyroxine 1.24 ng/dL (0.70-1.60)
[2023-03-07 15:13] LABS: Alanine Aminotransfer (ALT/SGP 25 U/L (12-78); Albumin, Blood 3.6 g/dL (3.4-5.0); Albumin/Globulin Ratio 0.9 (0.8-1.8); Alk Phos 117 U/L (50-136); Anion Gap 5 mmol/L (6-16); Aspartate Aminotrans (AST/SGOT 21 U/L (12-37); Bilirubin, Total 0.3 mg/dL (0.1-1.0); Blood Urea Nitrogen 14 mg/dL (8-24); Bun/Creatinine Ratio 16.7 (12.0-20.0); CHOL/HDL RATIO 6.3; CO2, Blood 25 mmol/L (21-32); Calcium, Blood 10.6 mg/dL (8.5-10.1); Chloride, Blood 102 mmol/L (98-108); Cholesterol 282 mg/dL (50-200); Creatinine, Blood 0.84 mg/dL (0.40-1.00); Globulin, Blood 4.1 g/dL (2.2-4.0); Glomerular Filtration Rate 75 (60-); Glucose, Blood 100 mg/dL (70-99); HDL Cholesterol 45 mg/dL (>39); LDL/HDL RATIO 3.9; Low Density Lipoprotein Chol 176 mg/dL (0-110); Potassium, Blood 4.2 mmol/L (3.5-5.5); Sodium, Blood 132 mmol/L (136-145); Total Protein, Blood 7.7 g/dL (6.4-8.2); Triglycerides 303 mg/dL (30-160); Very Low Density Lipoprot Chol 60 mg/dL (6-32)
== END | disposition home or self-care (01) ==
LOC: LAB 11:48 → LAB SHORT 11:48
PROVIDERS: Nurse Practitioner Family
DX: E78.2 Mixed hyperlipidemia (principal); E03.9 Hypothyroidism, unspecified; I12.9 Hypertensive chronic kidney disease with stage 1 through stage 4 chronic kidney disease, or unspecified chronic kidney disease; N18.9 Chronic kidney disease, unspecified
CPT/HCPCS: 80053; 80061; 84439; 84443; 85025

== ENCOUNTER 2023-05-12 21:18 | Emergency (ER) | payer OTHER ==
[~2023-05-12] VITALS: Ht 162.6 cm; Wt 94.8 kg
[2023-05-12 22:04] LABS: Source, Urine Fem Cath
[2023-05-12 22:28] LABS: Bilirubin, Urine Neg (Neg); Blood, Urine 2+ (Neg); Glucose Qualitative, Urine Neg (Neg); Ketones, Urine Neg (Neg); Leukocyte Esterase, Urine 1+ (Neg); Nitrite, Urine Pos (Neg); Protein, Urine 1+ (Neg); Specific Gravity, Urine 1.025 (1.003-1.022); Urobilinogen, Urine NORM (Normal)
[2023-05-12 22:46] LABS: Appearance, Urine Hazy (Clear); Color, Urine Yellow (P-Yellow)
[2023-05-12 22:47] LABS: Bacteria Many /hpf; Red Blood Cells, Urine 0-2 /hpf (0-2); White Blood Cells, Urine 50-100 /hpf (0-5)
[2023-05-12 22:48] LABS: Squamous Epithelial Cells Not Seen /hpf (Few)
[2023-05-12 23:53] LABS: Bun/Creatinine Ratio 15.3 (12.0-20.0); Calcium, Blood 10.2 mg/dL (8.5-10.1); Creatinine, Blood 0.92 mg/dL (0.40-1.00); Potassium, Blood 4.1 mmol/L (3.5-5.5)
[2023-05-13] MEDS ORDERED: CEFU500T30 PO (00:18)
[2023-05-13 00:45] VITALS: BP 166/83
== END 2023-05-13 01:00 | disposition home or self-care (01) ==
LOC: ER 21:18
PROVIDERS: Emergency Medicine; Student in an Organized Health Care Education/Training Program
DX: N39.0 Urinary tract infection, site not specified (principal); N18.2 Chronic kidney disease, stage 2 (mild); N81.10 Cystocele, unspecified; Z88.1 Allergy status to other antibiotic agents; Z88.2 Allergy status to sulfonamides; Z79.899 Other long term (current) drug therapy; E03.9 Hypothyroidism, unspecified
CPT/HCPCS: 51798; 80048; 81001; 87077; 87086; 87186; 99283-25; A9270; P9612

== ENCOUNTER → 2023-05-17 | Outpatient (CLI) | payer OTHER ==
[~2023-05-17] MED LIST changes: +CEFU500T30 PO
== END | disposition home or self-care (01) ==
LOC: LAB SHORT 12:00 → LAB 12:00
DX: R30.0 Dysuria (principal)
CPT/HCPCS: 87077; 87086; 87186

== ENCOUNTER → 2023-06-30 | Outpatient (CLI) | payer OTHER ==
[2023-06-30 19:46] LABS: Calcium, Blood 10.5 mg/dL (8.5-10.1); Creatinine, Blood 0.76 mg/dL (0.40-1.00); Potassium, Blood 4.5 mmol/L (3.5-5.5)
== END ==
LOC: LAB SHORT 15:57 → LAB 15:57
PROVIDERS: Nurse Practitioner Family
DX: N39.0 Urinary tract infection, site not specified (principal)
CPT/HCPCS: 80048; 87086

== ENCOUNTER 2023-07-25 10:30 | Emergency (ER) | payer OTHER ==
[~2023-07-25] VITALS: Ht 162.6 cm; Wt 94.8 kg
[2023-07-25 10:33] VITALS: BP 131/97
[2023-07-25] MEDS ORDERED: ACET325 PO (11:01)
[2023-07-25] MEDS ORDERED: CLON.5 PO (11:02)
[2023-07-25] MEDS ORDERED: CIME400 PO (11:02)
[2023-07-25] MEDS ORDERED: FURO20 PO (11:03)
[2023-07-25] MEDS ORDERED: ARNUITY ELLIPT50 MCG IH (11:03)
[2023-07-25] MEDS ORDERED: GUAI200 PO (11:04)
[2023-07-25] MEDS ORDERED: LEVOTHYROXINE125 MC9 PO (11:04)
[2023-07-25] MEDS ORDERED: MIRT30 PO (11:05)
[2023-07-25] MEDS ORDERED: LOSA25 PO (11:05)
[2023-07-25] MEDS ORDERED: ONDA4 PO (11:06)
[2023-07-25] MEDS ORDERED: POTA10T PO (11:07)
[2023-07-25] MEDS ORDERED: VITAMIN D31000 UNI1 PO (11:08)
[2023-07-25 11:10] LABS: BASOPHILS ABSOLUTE AUTO 0.06 K/mm3 (0.00-0.23); BASOPHILS PERCENT AUTO 1 % (0-2); EOSINOPHILS ABSOLUTE AUTO 0.12 K/mm3 (0.00-0.68); EOSINOPHILS PERCENT AUTO 2 % (0-6); Hematocrit 44.2 % (33.0-51.0); Hemoglobin 14.4 g/dL (11.5-16.0); IMMATURE GRAN ABSOLUTE AUTO 0.02 K/mm3 (0.00-0.10); IMMATURE GRAN PERCENT AUTO 0 % (0-1); LYMPHOCYTES ABSOLUTE AUTO 1.54 K/mm3 (0.84-5.20); LYMPHOCYTES PERCENT AUTO 24 % (21-46); MONOCYTES ABSOLUTE AUTO 0.48 K/mm3 (0.16-1.47); MONOCYTES PERCENT AUTO 8 % (4-13); Mean Corpuscular HGB 27.9 pg (26.0-34.0); Mean Corpuscular HGB Conc 32.6 g/dL (31.5-36.5); Mean Corpuscular Volume 86 fL (80-100); Mean Platelet Volume 8.7 fL (9.1-12.4); NEUTROPHILS ABSOLUTE AUTO 4.11 K/mm3 (1.96-9.15); NEUTROPHILS PERCENT AUTO 65 % (41-73); Platelet Count 348 K/mm3 (150-400); RDW Coefficient Variation 12.6 % (11.7-14.2); RDW Standard Deviation 39.6 fL (35.1-46.3); Red Blood Cell Count 5.16 M/mm3 (3.80-5.20); White Blood Cell Count 6.33 K/mm3 (4.00-11.30)
[2023-07-25 12:26] LABS: Source, Urine Straight Cath
[2023-07-25 12:36] LABS: Appearance, Urine Clear (Clear); Bilirubin, Urine Neg (Neg); Blood, Urine Neg (Neg); Glucose Qualitative, Urine Neg (Neg); Ketones, Urine Neg (Neg); Leukocyte Esterase, Urine Neg (Neg); Nitrite, Urine Neg (Neg); Protein, Urine Neg (Neg); Urobilinogen, Urine NORM (Normal); pH, Urine 6.5 (5.0-8.0)
[2023-07-25 12:45] LABS: Color, Urine Pale Yellow (P-Yellow)
[2023-07-25 13:14] LABS: Albumin, Blood 3.7 g/dL (3.4-5.0); Albumin/Globulin Ratio 0.8 (0.8-1.8); Bilirubin, Total 0.4 mg/dL (0.1-1.0); Bun/Creatinine Ratio 19.6 (12.0-20.0); Calcium, Blood 10.3 mg/dL (8.5-10.1); Creatinine, Blood 0.72 mg/dL (0.40-1.00); Globulin, Blood 4.7 g/dL (2.2-4.0); Potassium, Blood 4.4 mmol/L (3.5-5.5); Total Protein, Blood 8.4 g/dL (6.4-8.2)
[2023-07-25] MEDS ORDERED: ONDA4ODT MM (13:22)
== END 2023-07-25 14:29 | disposition home or self-care (01) ==
LOC: ER 10:30
PROVIDERS: Emergency Medicine
DX: K44.9 Diaphragmatic hernia without obstruction or gangrene (principal); R39.198 Other difficulties with micturition; R30.9 Painful micturition, unspecified; E03.9 Hypothyroidism, unspecified; N18.2 Chronic kidney disease, stage 2 (mild); F03.90 Unspecified dementia, unspecified severity, without behavioral disturbance, psychotic disturbance, mood disturbance, and anxiety; Z79.899 Other long term (current) drug therapy; Z88.1 Allergy status to other antibiotic agents; Z88.2 Allergy status to sulfonamides
CPT/HCPCS: 51798; 74177; 80053; 81003; 85025; 99285-25; P9612; Q9967

== ENCOUNTER 2023-08-23 10:06 | Emergency (ER) | payer OTHER ==
[~2023-08-23] VITALS: Ht 165.1 cm; Wt 91.2 kg
[~2023-08-23 10:06] MED LIST changes: +ACET325 PO; +ARNUITY ELLIPT50 MCG IH; +CIME400 PO; +CLON.5 PO; +GUAI200 PO; +LEVOTHYROXINE125 MC9 PO; +LOSA25 PO; +MIRT30 PO; +ONDA4 PO; +ONDA4ODT MM; +POTA10T PO; +VITAMIN D31000 UNI1 PO
[2023-08-23 10:52] VITALS: BP 132/86
[2023-08-23 11:35] LABS: BASOPHILS ABSOLUTE AUTO 0.04 K/mm3 (0.00-0.23); BASOPHILS PERCENT AUTO 1 % (0-2); EOSINOPHILS ABSOLUTE AUTO 0.07 K/mm3 (0.00-0.68); EOSINOPHILS PERCENT AUTO 1 % (0-6); Hematocrit 42.9 % (33.0-51.0); IMMATURE GRAN ABSOLUTE AUTO 0.03 K/mm3 (0.00-0.10); IMMATURE GRAN PERCENT AUTO 0 % (0-1); LYMPHOCYTES ABSOLUTE AUTO 1.58 K/mm3 (0.84-5.20); LYMPHOCYTES PERCENT AUTO 22 % (21-46); MONOCYTES ABSOLUTE AUTO 0.55 K/mm3 (0.16-1.47); MONOCYTES PERCENT AUTO 8 % (4-13); Mean Corpuscular HGB Conc 32.6 g/dL (31.5-36.5); Mean Corpuscular Volume 83 fL (80-100); Mean Platelet Volume 8.7 fL (9.1-12.4); NEUTROPHILS ABSOLUTE AUTO 5.09 K/mm3 (1.96-9.15); NEUTROPHILS PERCENT AUTO 69 % (41-73); Platelet Count 368 K/mm3 (150-400); RDW Coefficient Variation 12.8 % (11.7-14.2); RDW Standard Deviation 38.8 fL (35.1-46.3); Red Blood Cell Count 5.18 M/mm3 (3.80-5.20); White Blood Cell Count 7.36 K/mm3 (4.00-11.30)
[2023-08-23 12:04] LABS: Albumin, Blood 3.7 g/dL (3.4-5.0); Albumin/Globulin Ratio 0.8 (0.8-1.8); Bilirubin, Total 0.5 mg/dL (0.1-1.0); Bun/Creatinine Ratio 18.9 (12.0-20.0); Calcium, Blood 10.5 mg/dL (8.5-10.1); Creatinine, Blood 0.74 mg/dL (0.40-1.00); Globulin, Blood 4.4 g/dL (2.2-4.0); Potassium, Blood 3.5 mmol/L (3.5-5.5); Total Protein, Blood 8.1 g/dL (6.4-8.2)
[2023-08-23 14:46] LABS: Source, Urine Straight Cath
[2023-08-23 15:05] LABS: Appearance, Urine Clear (Clear); Bilirubin, Urine Neg (Neg); Blood, Urine Neg (Neg); Glucose Qualitative, Urine Neg (Neg); Ketones, Urine Neg (Neg); Leukocyte Esterase, Urine Neg (Neg); Nitrite, Urine Neg (Neg); Protein, Urine Neg (Neg); Urobilinogen, Urine NORM (Normal)
[2023-08-23 15:11] LABS: Color, Urine Pale Yellow (P-Yellow)
== END 2023-08-23 15:49 | disposition home or self-care (01) ==
LOC: ER 10:06
PROVIDERS: Emergency Medicine; Physician Assistant
DX: R33.9 Retention of urine, unspecified (principal); R10.30 Lower abdominal pain, unspecified; Z87.440 Personal history of urinary (tract) infections; I10 Essential (primary) hypertension; Z79.899 Other long term (current) drug therapy; Z88.1 Allergy status to other antibiotic agents; Z88.2 Allergy status to sulfonamides
CPT/HCPCS: 51701; 51798; 80053; 81003; 85025; 99283-25; J7030

== ENCOUNTER 2023-09-03 10:51 | Emergency (ER) | payer OTHER ==
[~2023-09-03] VITALS: Ht 165.1 cm; Wt 81.7 kg
[2023-09-03 12:02] LABS: BASOPHILS ABSOLUTE AUTO 0.04 K/mm3 (0.00-0.23); BASOPHILS PERCENT AUTO 1 % (0-2); EOSINOPHILS ABSOLUTE AUTO 0.07 K/mm3 (0.00-0.68); EOSINOPHILS PERCENT AUTO 1 % (0-6); Hematocrit 43.2 % (33.0-51.0); Hemoglobin 14.1 g/dL (11.5-16.0); IMMATURE GRAN ABSOLUTE AUTO 0.02 K/mm3 (0.00-0.10); IMMATURE GRAN PERCENT AUTO 0 % (0-1); LYMPHOCYTES ABSOLUTE AUTO 1.09 K/mm3 (0.84-5.20); LYMPHOCYTES PERCENT AUTO 19 % (21-46); MONOCYTES ABSOLUTE AUTO 0.39 K/mm3 (0.16-1.47); MONOCYTES PERCENT AUTO 7 % (4-13); Mean Corpuscular HGB 26.7 pg (26.0-34.0); Mean Corpuscular HGB Conc 32.6 g/dL (31.5-36.5); Mean Corpuscular Volume 82 fL (80-100); Mean Platelet Volume 9.2 fL (9.1-12.4); NEUTROPHILS ABSOLUTE AUTO 4.13 K/mm3 (1.96-9.15); NEUTROPHILS PERCENT AUTO 72 % (41-73); Platelet Count 328 K/mm3 (150-400); RDW Coefficient Variation 12.9 % (11.7-14.2); RDW Standard Deviation 38.5 fL (35.1-46.3); Red Blood Cell Count 5.28 M/mm3 (3.80-5.20); White Blood Cell Count 5.74 K/mm3 (4.00-11.30)
[2023-09-03 12:04] LABS: Albumin, Blood 3.7 g/dL (3.4-5.0); Albumin/Globulin Ratio 0.9 (0.8-1.8); Bilirubin, Total 0.5 mg/dL (0.1-1.0); Bun/Creatinine Ratio 20.8 (12.0-20.0); Calcium, Blood 10.2 mg/dL (8.5-10.1); Creatinine, Blood 0.77 mg/dL (0.40-1.00); Globulin, Blood 4.2 g/dL (2.2-4.0); Magnesium, Blood 2.5 mg/dL (1.6-2.4); Potassium, Blood 3.2 mmol/L (3.5-5.5); Total Protein, Blood 7.9 g/dL (6.4-8.2)
[2023-09-03 12:10] LABS: Source, Urine Clean Catch
[2023-09-03 12:15] LABS: Appearance, Urine Clear (Clear); Bilirubin, Urine Neg (Neg); Blood, Urine Neg (Neg); Glucose Qualitative, Urine Neg (Neg); Ketones, Urine Neg (Neg); Leukocyte Esterase, Urine Neg (Neg); Nitrite, Urine Neg (Neg); Protein, Urine Neg (Neg); Urobilinogen, Urine NORM (Normal)
[2023-09-03 12:16] LABS: Color, Urine Pale Yellow (P-Yellow)
[2023-09-03] MEDS ORDERED: DICY20 PO (14:56)
[2023-09-03] MEDS ORDERED: ALMACONE SUSPE355 ML PO (14:56)
[2023-09-03] MEDS ORDERED: OMEP20ER PO (14:56)
[2023-09-03 15:30] VITALS: BP 143/69
== END 2023-09-03 15:41 | disposition home or self-care (01) ==
LOC: ER 10:51
PROVIDERS: Student in an Organized Health Care Education/Training Program
DX: K29.70 Gastritis, unspecified, without bleeding (principal); K59.00 Constipation, unspecified; Z88.1 Allergy status to other antibiotic agents; Z88.2 Allergy status to sulfonamides; Z79.899 Other long term (current) drug therapy; E03.9 Hypothyroidism, unspecified; N18.30 Chronic kidney disease, stage 3 unspecified; I12.9 Hypertensive chronic kidney disease with stage 1 through stage 4 chronic kidney disease, or unspecified chronic kidney disease
CPT/HCPCS: 51798; 74177; 80053; 81003; 83690; 83735; 85025; 96361; 96374-59; 99284-25; A9270; J2405; J7030; Q9967